=== PATIENT | male | born 1960 | race Caucasian/White ===

== ENCOUNTER 2016-02-20 16:51 | Inpatient (IN) | payer BC, OTHER ==
[2016-02-20 17:07] VITALS: BMI 28.5
[2016-02-20] MEDS ORDERED: dilTIAZem HCL 50 MG/10 ML - 10 ML VIAL IVPUSH ONE ×2 (17:37→18:53)
--- NOTE | 2016-02-20 17:37 | PDOC ---
History of Present Illness <Cyndi Moreno - Last Filed: 02/20/16 19:58> <Ashley Shaffer - Last Filed: 02/21/16 02:31> - General Chief Complaint: Irregular Heart Beat Stated Complaint: CHEST PAIN Time Seen by Provider: 02/20/16 17:37 - History of Present Illness Initial Comments: 02/20/16 17:57 The patient is a 53 year old male with a past medical hx of afib who presents to the ED complaining of chest pain and palpitations since today. The patient notes associated SOB. The patient reports his first onset of afib was June 12, 2015 and he is on Eliquis. 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 The patient states he started to feel an irregular heartbeat and came to the ED for a second opinion. The patient denies fever, chills The patient denies nausea, vomiting, diarrhea The patient denies Social:No tobacco use reported Allergies:NKDA Surgical:None reported PCP: N/A (Cyndi Moreno) Past History <Cyndi Moreno - Last Filed: 02/20/16 19:58> - Past Medical History Cardiac Disorders: Yes (afib onset may 2015) - Psycho/Social/Smoking Cessation Hx Suicidal Ideation: No Smoking History: Never smoked Hx Alcohol Use: No Drug/Substance Use Hx: No <Ashley Shaffer - Last Filed: 02/21/16 02:31> - Past Medical History Allergies/Adverse Reactions: Allergies Allergy/AdvReac Type Severity Reaction Status Date / Time No Known Allergies Allergy Verified 02/20/16 17:43 Home Medications: Ambulatory Orders Apixaban [Eliquis] 5 mg PO BID 02/20/16 Nifedipine ER [Procardia Xl -] 120 mg PO BID 02/20/16 Review of Systems - Review of Systems Able to Perform ROS?: Yes <Cyndi Moreno - Last Filed: 02/20/16 19:58> <Ashley Shaffer - Last Filed: 02/21/16 02:31> - Review of Systems Comments:: 02/20/16 17:58 CONSTITUTIONAL: Absent: fever, chills, diaphoresis, generalized weakness, malaise, loss of appetite HEENT: Absent: rhinorrhea, nasal congestion, throat pain, throat swelling, difficulty swallowing, mouth swelling, ear pain, eye pain, visual Changes CARDIOVASCULAR: +Chest pain, palpitations, irregular heart rate Absent: syncope, lightheadedness, peripheral edema RESPIRATORY: +SOB Absent: cough, dyspnea with exertion, orthopnea, wheezing, stridor, hemoptysis GASTROINTESTINAL: Absent: abdominal pain, abdominal distension, nausea, vomiting, diarrhea, constipation, melena, hematochezia GENITOURINARY: Absent: dysuria, frequency, urgency, hesitancy, hematuria, flank pain, genital pain MUSCULOSKELETAL: Absent: myalgia, arthralgia, joint swelling SKIN: Absent: rash, itching, pallor ENDOCRINE: Absent: unexplained weight gain, unexplained weight loss, heat intolerance, cold intolerance NEUROLOGIC: Absent: headache, focal weakness or paresthesias, dizziness, unsteady gait, seizure, mental status changes, bladder or bowel incontinence PSYCHIATRIC: Absent: anxiety, depression, suicidal or homicidal ideation, hallucinations. ( Cyndi Moreno) *Physical Exam <Cyndi Moreno - Last Filed: 02/20/16 19:58> <Ashley Shaffer - Last Filed: 02/21/16 02:31> - Vital Signs Last Vital Signs Temp Pulse Resp BP Pulse Ox 98.4 F 108 H 16 112/90 100 02/20/16 17:01 02/20/16 22:16 02/20/16 22:16 02/20/16 22:16 02/20/16 22:16 - Physical Exam Comments: 02/20/16 18:00 GENERAL: Well developed, well nourished. Awake and alert. No acute distress. HEENT: Normocephalic, atraumatic. PERRLA, EOMI. No conjunctival pallor. Sclera are non- icteric. Moist mucous membranes. Oropharynx is clear. NECK: Supple. Full ROM. No JVD. Carotid pulses 2+ and symmetric, without bruits. No thyromegaly. No lymphadenopathy. CARDIOVASCULAR: +Tachycardia. Regular rhythm. No murmurs, rubs, or gallops. Distal pulses are 2 + and symmetric. PULMONARY: +No rales. No evidence of respiratory distress. Lungs clear to auscultation bilaterally. No wheezing or rhonchi. ABDOMINAL: Soft. Non-tender. Non-distended. No rebound or guarding. No organomegaly. Normoactive bowel sounds. MUSCULOSKELETAL Normal range of motion at all joints. No bony deformities or tenderness. No CVA tenderness. EXTREMITIES: No cyanosis. No clubbing. No edema. No calf tenderness. SKIN: Warm and dry. Normal capillary refill. No rashes. No jaundice. NEUROLOGICAL: Alert, awake, appropriate. Cranial nerves 2-12 intact. No focal neuro deficits. No motor deficits in the in face, upper extremities and lower extremities. Normoreflexic in the upper and lower extremities. Normal speech. Gait is normal without ataxia. PSYCHIATRIC: Cooperative. Good eye contact. Appropriate mood and affect. (Cyndi Moreno) Heart Score/ECG Review <Cyndi Moreno - Last Filed: 02/20/16 19:58> <Ashley Shaffer - Last Filed: 02/21/16 02:31> - ECG Impressions Comment:: 02/20/16 18:18 EKG performed at 1723. Read and interpreted by Dr. Shaffer afib and RVR at a rate of 154 bpm. (Cyndi Moreno) ED Treatment Course - LABORATORY CBC & Chemistry Diagram: 02/20/16 17:47 02/20/16 17:47 <Cyndi Moreno - Last Filed: 02/20/16 19:58> - LABORATORY CBC & Chemistry Diagram: 02/20/16 17:47 02/20/16 17:47 <Ashley Shaffer - Last Filed: 02/21/16 02:31> - ADDITIONAL ORDERS Additional order review: Laboratory Results 02/20/16 02/20/16 02/20/16 17:47 17:47 17:47 INR Sodium 140 Potassium 4.8 Chloride 105 Carbon Dioxide 28 Anion Gap 7 L BUN 20 H Creatinine 1.4 H Creat Clearance w eGFR 52.42 Random Glucose 91 Calcium 8.7 Magnesium 2.3 Total Bilirubin 0.7 AST 18 ALT 25 Alkaline Phosphatase 107 Creatine Kinase 173 Creatine Kinase Index 1.6 CK-MB (CK-2) 2.830 CK-MB (CK-2) Rel Index Cancelled Troponin I < 0.02 B-Natriuretic Peptide 1115.36 H Total Protein 7.2 Albumin 4.0 Urine Color Yellow Urine Appearance Clear Urine pH 5.0 Ur Specific [place] 1.029 Urine Protein Negative Urine Glucose (UA) Negative Urine Ketones Negative Urine Blood Negative Urine Nitrite Negative Urine Bilirubin Negative Urine Urobilinogen Negative Ur Leukocyte Esterase Negative 02/20/16 17:47 INR 1.45 H Sodium Potassium Chloride Carbon Dioxide Anion Gap BUN Creatinine Creat Clearance w eGFR Random Glucose Calcium Magnesium Total Bilirubin AST ALT Alkaline Phosphatase Creatine Kinase Creatine Kinase Index CK-MB (CK-2) CK-MB (CK-2) Rel Index Troponin I B-Natriuretic Peptide Total Protein Albumin Urine Color Urine Appearance Urine pH Ur Specific [place] Urine Protein Urine Glucose (UA) Urine Ketones Urine Blood Urine Nitrite Urine Bilirubin Urine Urobilinogen Ur Leukocyte Esterase 02/20/16 17:47 RBC 5.67 H MCV 88.3 MCHC 31.8 L RDW 14.6 MPV 9.5 Neutrophils % 64.3 Lymphocytes % 20.3 Monocytes % 12.5 H Eosinophils % 2.0 Basophils % 0.9 - RADIOLOGY Radiology Studies Ordered: Category Date Time Status CHEST X-RAY PORTABLE* [RAD] Stat Radiology 02/20/16 17:40 Completed 02/20/16 20:00 Chest X-Ray Impression: There is apparent mild cardiomegaly allowing for magnification. Correlation with PA and lateral view of the chest with the more sensitive for further evaluation. No acute lung disease is present. Reported By: Sav Mariano MD 02/20/16 1812 (Cyndi Moreno) Radiograph Interpretation: 02/20/16 19:59 (Cyndi Moreno) - Medications Given in the ED: ED Medications Discontinued Medications Generic Name Dose Route Start Last Admin Trade Name Freq PRN Reason Stop Dose Admin Aspirin 162 mg 02/20/16 17:40 02/20/16 18:05 Asa - PO 02/20/16 17:41 162 mg ONCE ONE Administration Diltiazem HCl 10 mg 02/20/16 17:37 02/20/16 17:51 Cardizem Injection - IVPUSH 02/20/16 17:38 10 mg ONCE ONE Administration Diltiazem HCl 20 mg 02/20/16 18:53 02/20/16 18:55 Cardizem Injection - IVPUSH 02/20/16 18:54 20 mg ONCE ONE Administration Medical Decision Making <Cyndi Moreno - Last Filed: 02/20/16 19:58> <Ashley Shaffer - Last Filed: 02/21/16 02:31> - Medical Decision Making 02/20/16 18:15 Paged hospitalist at 17:45. Awaiting call back. Dr. Currie called back at 17:51. Accepted patients case. (Cyndi Moreno) *DC/Admit/Observation/Transfer <Cyndi Moreno - Last Filed: 02/20/16 19:58> - Discharge Dispostion Admit: Yes <Ashley Shaffer - Last Filed: 02/21/16 02:31> Diagnosis at time of Disposition: Rapid atrial fibrillation - Discharge Dispostion Decision to Admit order Date/Time: Decision to Admit Order Category Date Time Status Decision to Admit to Hospital Routine Phy Order 02/20/16 17:42 Ordered - Attestations Scribe Attestion: 02/20/16 17:57 Documentation prepared by Cyndi Moreno, acting as certified medical assistant for Ashley Shaffer MD/DO. (Cyndi Moreno)
[2016-02-20] MEDS ORDERED: ASPIRIN 81 MG CHEWABLE TABLETS PO ONE (17:40)
[2016-02-20] MEDS ORDERED: dilTIAZem HCL 125 MG/25 ML - 25 ML VIAL ONE (17:43)
[2016-02-20] MEDS ORDERED: ASPIRIN 81 MG CHEWABLE TABLETS ONE (18:04)
[2016-02-20 18:24] LABS: BASOPHIL 0.9 % (0-2.0); MCH 28.1 pg (25.7-33.7); MCHC 31.8 g/dl (32.0-35.9); MEAN CELL VOLUME 88.3 fl (80-96); MEAN PLT VOLUME 9.5 fl (7.5-11.1); NEUTROPHILS 64.3 % (42.8-82.8); PLATELET COUNT 201 K/MM3 (134-434); RDW 14.6 % (11.9-15.9); WHITE BLOOD COUNT 11.4 K/mm3 (4.0-10.0)
[2016-02-20 18:27] LABS: URINE APPEARANCE CLEAR; URINE BILIRUBIN NEGATIVE (NEGATIVE); URINE BLOOD NEGATIVE (NEGATIVE); URINE COLOR YELLOW; URINE GLUCOSE (UA) NEGATIVE (NEGATIVE); URINE KETONE NEGATIVE (NEGATIVE); URINE LEUK ESTERASE NEGATIVE (NEGATIVE); URINE NITRITE NEGATIVE (NEGATIVE); URINE PROTEIN NEGATIVE (NEGATIVE); URINE UROBILINOGEN NEGATIVE E.U./dl (0.2-1.0)
[2016-02-20 18:37] LABS: INR 1.45 (0.82-1.09); PROTHROMBIN TIME (PATIENT) 16.1 SEC (9.98-11.88)
[2016-02-20 18:47] LABS: ANION GAP 7 (8-16); BILIRUBIN,TOTAL 0.7 mg/dL (0.2-1.0); CALCIUM 8.7 mg/dL (8.5-10.1); CO2 28 mmol/L (21-32); CREATININE 1.4 mg/dL (0.7-1.3); GLUCOSE,RANDOM 91 mg/dL (74-106); MAGNESIUM 2.3 mg/dL (1.8-2.4); SGOT/AST 18 U/L (15-37); SGPT/ALT 25 U/L (12-78); TOT PROT 7.2 g/dl (6.4-8.2)
[2016-02-20 18:49] LABS: ALK PHOS 107 U/L (45-117); TROPONIN I < 0.02 ng/ml (0.00-0.05)
--- NOTE | 2016-02-20 18:53 | PN ---
Progress Note (short form) - Note Progress Note: 55 yo h/o PAF, stress echo showed asymmetric septal hypertrophy 20 mmHg, normal LV size and fxn with no inducible ischemia, presented to office in asymptomatic rapid afib, hemodynamically stable despite medication compliance. He is receiving Cardizem and Lopressor for rate-control, will plan for DCCV in AM if persists in rapid afib as he has been compliant with Eliquis. Plan of care d/w patient and . Please see office note for details, check TSH and echo.
[2016-02-20] MEDS ORDERED: METOPROLOL TARTRATE 25 MG TABLET (FP) ONE ×2 (18:54→22:08)
[2016-02-20] MEDS: METOPROLOL TARTRATE 25 MG TABLET (FP) PO SCH ×2 (18:56→22:16)
--- NOTE | 2016-02-20 19:19 | HP ---
<Sushant Valencia - Last Filed: 02/20/16 20:22> CHIEF COMPLAINT: AFIB PCP: Dr. Rusty Hill HISTORY OF PRESENT ILLNESS: 55 year old male, with a significant past medical history of AFIB (first diagnosed 05/2015) on eliquis, who presented with chest pain and palpitations. No surgical history. Social history positive for social ETOH use, otherwise negative. Family history significant for father having AFIB. ER course was notable for: (1) Chest Pain (2) Palpitations (3) Onset AFIB Recent Travel: No recent travel PAST MEDICAL HISTORY: AFIB (first diagnosed 05/2015) on eliquis PAST SURGICAL HISTORY: None reported Social History: Smoking: None reported Alcohol: Social use Drugs: None reported Family History: Father: AFIB Allergies No Known Allergies Allergy (Verified 02/20/16 17:43) HOME MEDICATIONS: Medication Instructions Recorded Apixaban [Eliquis] 5 mg PO BID 02/20/16 Nifedipine ER [Procardia Xl -] 120 mg PO BID 02/20/16 REVIEW OF SYSTEMS CONSTITUTIONAL: Absent: fever, chills, diaphoresis, generalized weakness, malaise, loss of appetite, weight change HEENT: Absent: rhinorrhea, nasal congestion, throat pain, throat swelling, difficulty swallowing, mouth swelling, ear pain, eye pain, visual changes CARDIOVASCULAR: Reported: Chest pain, palpitations Absent: syncope, irregular heart rate, lightheadedness, peripheral edema RESPIRATORY: Absent: cough, shortness of breath, dyspnea with exertion, orthopnea, wheezing, stridor, hemoptysis GASTROINTESTINAL: Absent: abdominal pain, abdominal distension, nausea, vomiting, diarrhea, constipation, melena, hematochezia GENITOURINARY: Absent: dysuria, frequency, urgency, hesitancy, hematuria, flank pain, genital pain MUSCULOSKELETAL: Absent: myalgia, arthralgia, joint swelling, back pain, neck pain SKIN: Absent: rash, itching, pallor HEMATOLOGIC/IMMUNOLOGIC: Absent: easy bleeding, easy bruising, lymphadenopathy, frequent infections ENDOCRINE: Absent: unexplained weight gain, unexplained weight loss, heat intolerance, cold intolerance NEUROLOGIC: Absent: headache, focal weakness or paresthesias, dizziness, unsteady gait, seizure, mental status changes, bladder or bowel incontinence PSYCHIATRIC: Absent: anxiety, depression, suicidal or homicidal ideation, hallucinations. PHYSICAL EXAMINATION Vital Signs - 24 hr 01/03/17 18:50 Pulse Rate [ 120 H Left] Respiratory 18 Rate Blood Pressure 119/63 [Arm] O2 Sat by Pulse 100 Oximetry (%) GENERAL: Awake, alert, and fully oriented, in no acute distress. HEAD: Normal with no signs of trauma. EYES: Pupils equal, round and reactive to light, extraocular movements intact, sclera anicteric, conjunctiva clear. No lid lag. EARS, NOSE, THROAT: Ears normal, nares patent, oropharynx clear without exudates. Moist mucous membranes. NECK: Normal range of motion, supple without lymphadenopathy, JVD, or masses. LUNGS: Breath sounds equal, clear to auscultation bilaterally. No wheezes, and no crackles. No accessory muscle use. HEART: +AFIB, normal S1 and S2 without murmur, rub or gallop. ABDOMEN: Soft, nontender, not distended, normoactive bowel sounds, no guarding, no rebound, no masses. No hepatomegaly or splenomegaly. MUSCULOSKELETAL: Normal range of motion at all joints. No bony deformities or tenderness. No CVA tenderness. UPPER EXTREMITIES: 2+ pulses, warm, well-perfused. No cyanosis. No clubbing. Cap refill <2 seconds. No peripheral edema. LOWER EXTREMITIES: 2+ pulses, warm, well-perfused. No calf tenderness. No peripheral edema. NEUROLOGICAL: Cranial nerves II-XII intact. Normal speech. Normal gait. PSYCHIATRIC: Cooperative. Good eye contact. Appropriate mood and affect. SKIN: Warm, dry, normal turgor, no rashes or lesions noted. Chest X-Ray Impression - No acute lung disease, mild cardiomegaly EKG Impression: AFIB with RVR, rate of 54 ASSESSMENT/PLAN: 55 year old male, px medical history of AFIB on eliquis, who present with chest pain and palpitations, found to be in AFIB in RVR, being admitted for cardioversion in the AM 1.) AFIB with RVR on eliquis - Cardioversion in the AM - NPO after midnight - Coags in the AM - Cardiology on consult - Cardizem given for rate control, continue with beta kelley 2.) DVT on prophylaxis, on eliquis Admit to [facility] Documentation prepared by Sushant Valencia, acting as center medical director for Lizet Rm D.O. <Lizet Rm - Last Filed: 02/25/16 19:02> Visit type - Emergency Visit Emergency Visit: Yes ED Registration Date: 02/20/16 Care time: The patient presented to the Emergency Department on the above date and was hospitalized for further evaluation of their emergent condition. - New Patient This patient is new to me today: Yes Date on this admission: 02/25/16 - Critical Care Critical Care patient: No
[2016-02-20] MEDS: APIXABAN 5 MG TABLET PO SCH (22:35)
[2016-02-21 06:21] LABS: MCH 28.7 pg (25.7-33.7); MCHC 32.1 g/dl (32.0-35.9); MEAN CELL VOLUME 89.6 fl (80-96); MEAN PLT VOLUME 9.2 fl (7.5-11.1); PLATELET COUNT 202 K/MM3 (134-434); RDW 14.4 % (11.9-15.9); WHITE BLOOD COUNT 10.4 K/mm3 (4.0-10.0)
[2016-02-21 06:33] LABS: INR 1.53 (0.82-1.09)
[2016-02-21 06:35] LABS: ACTIVATED PTT 41.9 SECONDS (26.9-34.4)
[2016-02-21 07:10] LABS: CALCIUM 8.9 mg/dL (8.5-10.1); CREATININE 1.3 mg/dL (0.7-1.3); MAGNESIUM 2.4 mg/dL (1.8-2.4)
--- NOTE | 2016-02-21 09:51 | PN ---
Progress Note, Physician History of Present Illness: Remains in asymptomatic rapid atrial fibrillation. - Current Medication List Current Medications: Active Medications Apixaban (Eliquis -) 5 mg PO BID [facility] Last Admin: 02/20/16 22:35 Dose: 5 mg Metoprolol Tartrate (Lopressor -) 25 mg PO BID [facility] Last Admin: 02/20/16 22:16 Dose: 25 mg - Objective Vital Signs: Vital Signs Temperature 98.4 F 02/20/16 17:01 Pulse Rate 109 H 02/21/16 03:47 Respiratory Rate 16 02/21/16 03:47 Blood Pressure 112/89 02/21/16 03:47 O2 Sat by Pulse Oximetry (%) 98 02/21/16 03:47 Constitutional: Yes: No Distress, Calm Neck: Yes: Supple Cardiovascular: Yes: Tachycardia, Pulse Irregular Respiratory: Yes: Regular, CTA Bilaterally Gastrointestinal: Yes: Normal Bowel Sounds, Soft Edema: No Labs: CBC, BMP 02/21/16 06:04 02/21/16 06:04 INR, PTT INR 1.53 (0.82-1.09) H 02/21/16 06:04 - ....Imaging EKG: Report Reviewed (Tele: Rapid afib) Problem List - Problems (1) Rapid atrial fibrillation Code(s): I48.91 - UNSPECIFIED ATRIAL FIBRILLATION Assessment/Plan A: 1. Rapid atrial fibrillation (asymptomatic) P:1. Ruled out for [place], check TSH 2. Echo to assess LV and valve fxn 3. Increase Lopressor 50 bid, continue Eliquis 5 bid, will consider DCCV if rate -control remains suboptimal.
[2016-02-21] MEDS ORDERED: METOPROLOL TARTRATE 50 MG TABLET (FP) PO SCH (10:00)
[2016-02-21] MEDS ORDERED: METOPROLOL TARTRATE 25 MG TABLET (FP) ONE (10:42)
[2016-02-21] MEDS: APIXABAN 5 MG TABLET PO SCH ×2 (10:47→21:04)
[2016-02-21 11:14] LABS: THYROID STIMULATING HORMONE 1.15 uIU/ml (0.358-3.74)
--- NOTE | 2016-02-21 13:08 | PN ---
Progress Note, Physician - Current Medication List Current Medications: Active Medications Apixaban (Eliquis -) 5 mg PO BID [facility] Last Admin: 02/21/16 10:47 Dose: 5 mg - Objective Vital Signs: Vital Signs Temperature 97.6 F 02/21/16 12:29 Pulse Rate 114 H 02/21/16 12:29 Respiratory Rate 18 02/21/16 12:29 Blood Pressure 117/89 02/21/16 12:29 O2 Sat by Pulse Oximetry (%) 95 02/21/16 12:29 Constitutional: Yes: Well Nourished, No Distress, Calm Eyes: Yes: WNL, Conjunctiva Clear HENT: Yes: WNL, Atraumatic, Normocephalic Neck: Yes: WNL, Supple, Trachea Midline Cardiovascular: Yes: Tachycardia. No: Regular Rate and Rhythm Respiratory: Yes: WNL, Regular, CTA Bilaterally Gastrointestinal: Yes: WNL, Normal Bowel Sounds Musculoskeletal: Yes: WNL Extremities: Yes: WNL Edema: No Integumentary: Yes: WNL Neurological: Yes: WNL, Alert, Oriented ...Motor Strength: WNL Psychiatric: Yes: WNL Labs: CBC, BMP 02/21/16 06:04 02/21/16 06:04 INR, PTT INR 1.53 (0.82-1.09) H 02/21/16 06:04 Impression/Plan Impression/Plan: 55 year old man admitted for afib with RVR -started on metoprolol 50 BID -HR still above 120 -increase to 75 BID -discussed case with Cardio attending and if HR remains difficult to control will go for cardioversion -follow up echo Visit type - Emergency Visit Emergency Visit: Yes ED Registration Date: 02/20/16 Care time: The patient presented to the Emergency Department on the above date and was hospitalized for further evaluation of their emergent condition. - New Patient This patient is new to me today: Yes Date on this admission: 02/21/16 - Critical Care Critical Care patient: No
[2016-02-21] MEDS ORDERED: METOPROLOL TARTRATE 25 MG TABLET (FP) PO STA (13:14)
[2016-02-21] MEDS: METOPROLOL TARTRATE 50 MG TABLET (FP) PO SCH (21:04)
[2016-02-22 07:34] LABS: CALCIUM 8.3 mg/dL (8.5-10.1); CREATININE 1.3 mg/dL (0.7-1.3); MAGNESIUM 2.2 mg/dL (1.8-2.4); PHOSPHOROUS 3.4 mg/dL (2.5-4.9)
[2016-02-22 07:35] LABS: BASOPHIL 0.5 % (0-2.0); EOSINOPHIL 2.2 % (0-4.5); MCH 29.4 pg (25.7-33.7); MCHC 32.7 g/dl (32.0-35.9); MEAN CELL VOLUME 89.8 fl (80-96); MEAN PLT VOLUME 9.7 fl (7.5-11.1); NEUTROPHILS 65.3 % (42.8-82.8); PLATELET COUNT 177 K/MM3 (134-434); RDW 14.7 % (11.9-15.9); WHITE BLOOD COUNT 9.7 K/mm3 (4.0-10.0)
--- NOTE | 2016-02-22 08:28 | PN ---
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 no complaints , no over night events asymptomatic non sustained 140's back in the 120's will consider RYAN to cardiovert. OBJECTIVE: Vital Signs Period Temp Pulse Resp BP Sys/Cervantes Pulse Ox Last 24 Hr 97.3 F-98.8 F 62-129 18-20 95-126/36-97 95-99 GENERAL: The patient is awake, alert, and fully oriented, in no acute distress. HEAD: Normal with no signs of trauma. EYES: PERRL, extraocular movements intact, sclera anicteric, conjunctiva clear. No ptosis. ENT: Ears normal, nares patent, oropharynx clear without exudates, moist mucous membranes. NECK: Trachea midline, full range of motion, supple. LUNGS: Breath sounds equal, clear to auscultation bilaterally, no wheezes, no crackles, no accessory muscle use. HEART: Regular rate and rhythm, S1, S2 without murmur, rub or gallop. ABDOMEN: Soft, nontender, nondistended, normoactive bowel sounds, no guarding, no rebound, no hepatosplenomegaly, no masses. EXTREMITIES: 2+ pulses, warm, well-perfused, no edema. NEUROLOGICAL: Cranial nerves II through XII grossly intact. Normal speech, gait not observed. PSYCH: Normal mood, normal affect. SKIN: Warm, dry, normal turgor, no rashes or lesions noted Laboratory Results - last 24 hr 02/21/16 02/21/16 02/22/16 06:04 06:04 06:00 WBC 9.7 RBC 5.66 H Hgb 16.6 Hct 50.8 H MCV 89.8 MCHC 32.7 RDW 14.7 Plt Count 177 MPV 9.7 Neutrophils % 65.3 Lymphocytes % 21.4 Monocytes % 10.6 H Eosinophils % 2.2 Basophils % 0.5 Sodium Potassium Chloride Carbon Dioxide Anion Gap BUN Creatinine Random Glucose Calcium Phosphorus Magnesium TSH 1.15 Cancelled 02/22/16 06:00 WBC RBC Hgb Hct MCV MCHC RDW Plt Count MPV Neutrophils % Lymphocytes % Monocytes % Eosinophils % Basophils % Sodium 140 Potassium 4.7 Chloride 105 Carbon Dioxide 27 Anion Gap 8 BUN 19 H Creatinine 1.3 Random Glucose 93 Calcium 8.3 L Phosphorus 3.4 Magnesium 2.2 TSH Active Medications Generic Name Dose Route Start Last Admin Trade Name Freq PRN Reason Stop Dose Admin Apixaban 5 mg 02/20/16 22:00 02/21/16 21:04 Eliquis - PO 5 mg BID [facility] Administration Metoprolol Tartrate 75 mg 02/21/16 22:00 02/21/16 21:04 Lopressor - PO 75 mg BID [facility] Administration RYAN/CARDIOVERSION Preliminary result as follows 1. Mild to moderately decreased LV systolic function 2. Moderate MR 3. Mild to moderate TR 4. Mild AR 5. No evidence of mass or thrombus in LA appendage 6. No evidence of intracardiac shunt via color Doppler or agitated saline injection 7. No evidence of atherosclerotic plaque in thoracic aorta or aortic arch 8. No pericardial effusion ASSESSMENT/PLAN: 55 year old male, px medical history of AFIB on eliquis, who present with chest pain and palpitations, found to be in asymptomatic AFIB in RVR , being admitted for cardioversion. 1.) AFIB with RVR on eliquis:-HR was not controlled medically s/p D/C cardioversion, currently NS rhythm -metoprol changed to succinate 50 BID -started on amiodarone -started on valsartan - Cardiology input apreciated - Cardizem given for rate control, continue with beta kelley -will continue A/C -Change Toprol XL 50 bid, start Diovan 80 qd and amio 200 bid, with up titration as tolerated, -Plan for RYAN-guided DCCV as rate-control remains suboptimal. 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 - New Patient This patient is new to me today: Yes Date on this admission: 02/20/16 - Critical Care Critical Care patient: No
[2016-02-22] MEDS: METOPROLOL TARTRATE 50 MG TABLET (FP) PO SCH (10:00)
--- NOTE | 2016-02-22 10:06 | PN ---
Progress Note, Physician History of Present Illness: Mild dyspnea with exertion, remains in rapid atrial fibrillation. - Current Medication List Current Medications: Active Medications Apixaban (Eliquis -) 5 mg PO BID [facility] Last Admin: 02/21/16 21:04 Dose: 5 mg Metoprolol Tartrate (Lopressor -) 75 mg PO BID [facility] Last Admin: 02/21/16 21:04 Dose: 75 mg - Objective Vital Signs: Vital Signs Temperature 97.4 F L 02/22/16 06:00 Pulse Rate 120 H 02/22/16 06:10 Respiratory Rate 20 02/22/16 06:10 Blood Pressure 117/77 02/22/16 06:10 O2 Sat by Pulse Oximetry (%) 98 02/21/16 21:00 Constitutional: Yes: No Distress, Calm Neck: Yes: Supple Cardiovascular: Yes: Tachycardia, Pulse Irregular Respiratory: Yes: Regular, CTA Bilaterally Gastrointestinal: Yes: Normal Bowel Sounds, Soft Edema: No Labs: CBC, BMP 02/22/16 06:00 02/22/16 06:00 INR, PTT INR 1.53 (0.82-1.09) H 02/21/16 06:04 Problem List - Problems (1) Rapid atrial fibrillation Code(s): I48.91 - UNSPECIFIED ATRIAL FIBRILLATION (2) Tachycardia induced cardiomyopathy Code(s): R00.0 - TACHYCARDIA, UNSPECIFIED I43 - CARDIOMYOPATHY IN DISEASES CLASSIFIED ELSEWHERE (3) Systolic dysfunction, left ventricle Code(s): I51.9 - HEART DISEASE, UNSPECIFIED Assessment/Plan Echo: Normal LV size with mod-severely decreased LV fxn, mod decreased RV fxn, severe NATHAN, mod-severe MR, TR A: 1. Rapid atrial fibrillation (asymptomatic) 2. LV systolic dysfunction with MR, TR, suspect tachycardia-mediated etiology P:1. Ruled out for [place] 2. Change Toprol XL 50 bid, start Diovan 80 qd and amio 200 bid, with uptitration as tolerated, continue Eliquis 5 bid. Plan for RYAN-guided DCCV as rate-control remains suboptimal. 3. Reassess LV fxn in future once rate/rhythm control established
[2016-02-22] MEDS ORDERED: LIDOCAINE HCL/PF 1% SDV 5ML VIAL ONE (10:59)
[2016-02-22] MEDS ORDERED: PROPOFOL 20 ML ONE ×2 (10:59)
[2016-02-22] MEDS ORDERED: AMIODARONE HCL 150 MG/3 ML VIAL IVPB ONE (12:20)
[2016-02-22] MEDS ORDERED: AMIODARONE HCL 200 MG TABLET (FP) PO SCH (12:30)
[2016-02-22] MEDS: VALSARTAN 80 MG TABLET (UD) PO SCH (14:38)
[2016-02-22] MEDS: APIXABAN 5 MG TABLET PO SCH ×2 (14:38→22:08)
[2016-02-22] MEDS: METOPROLOL SUCCINATE 50 MG TAB.SR.24H (FP) PO SCH ×2 (14:38→22:08)
--- NOTE | 2016-02-22 15:15 | EKG ---
Test Reason : Blood Pressure : / mmHG Vent. Rate : 154 BPM Atrial Rate : 288 BPM P-R Int : 000 ms QRS Dur : 092 ms QT Int : 298 ms P-R-T Axes : 000 072 016 degrees QTc Int : 477 ms ATRIAL FIBRILLATION WITH RAPID VENTRICULAR RESPONSE INCOMPLETE RIGHT BUNDLE BRANCH BLOCK NONSPECIFIC ST ABNORMALITY , PROBABLY DIGITALIS EFFECT ABNORMAL ECG NO PREVIOUS ECGS AVAILABLE Confirmed by JUHI ALBERT MD ([id number]) on 02/22/2016 3:15:20 PM Referred By: Confirmed By:JUHI ALBERT MD
--- NOTE | 2016-02-22 16:37 | EKG ---
Test Reason : Blood Pressure : / mmHG Vent. Rate : 058 BPM Atrial Rate : 058 BPM P-R Int : 162 ms QRS Dur : 094 ms QT Int : 440 ms P-R-T Axes : 065 062 051 degrees QTc Int : 431 ms SINUS BRADYCARDIA POSSIBLE LEFT ATRIAL ENLARGEMENT BORDERLINE ECG WHEN COMPARED WITH ECG OF 20-FEB-2016 17:23, SINUS RHYTHM HAS REPLACED ATRIAL FIBRILLATION VENT. RATE HAS DECREASED BY 96 BPM Confirmed by JUHI ALBERT MD ([id number]) on 02/22/2016 4:37:10 PM Referred By: MAURI MARTELL DR Confirmed By:JUHI ALBERT MD
--- NOTE | 2016-02-22 21:08 | PN ---
Progress Note (short form) - Note Progress Note: RYAN/CARDIOVERSION Risks including, but not limited to esophageal injury discussed Preliminary result as follows 1. Mild to moderately decreased LV systolic function 2. Moderate MR 3. Mild to moderate TR 4. Mild AR 5. No evidence of mass or thrombus in LA appendage 6. No evidence of intracardiac shunt via color Doppler or agitated saline injection 7. No evidence of atherosclerotic plaque in thoracic aorta or aortic arch 8. No pericardial effusion Official result to follow Successful synchronized cardioversion to sinus after 3rd try at 200J. Patient was given IV Amiodarone 150 mg bolus and started on Amiodarone 200 mg PO once a day. Check 12 lead ECG. Continue remainder of medications Further plans are to follow Get Patel MD
[2016-02-22] MEDS: AMIODARONE HCL 200 MG TABLET (FP) PO SCH (22:08)
[2016-02-23] MEDS ORDERED: dilTIAZem HCL 30 MG TABLET (FP) PO ONE (06:02)
[2016-02-23] MEDS ORDERED: METOPROLOL TARTRATE 25 MG TABLET (FP) PO ONE (06:23)
[2016-02-23] MEDS ORDERED: METOPROLOL TARTRATE 50 MG TABLET (FP) ONE (06:28)
--- NOTE | 2016-02-23 06:29 | HOSP ---
Subjective - Review of Symptoms Events since last encounter: patients heart rate on telemetry elevated to 120's systolic Subjective: patient is s/p cardioversion yesterday from rapid a fib to regular sinus rythm. Now patient rate 120's. He is asymptomatic. Denies chest pain, palpitations, sob , diaphoresis. EKG obtained shows atrial flutter, some st depressions in inferior leads without st elevation in R sided leads. Pulmonary: No: Dyspnea, Cough, Pleuritic Chest Pain Cardiovascular: Yes: Paroxysmal Noc. Dyspnea. No: Chest Pain, Palpitations Gastrointestinal: No: Nausea Physical Examination Vital Signs: Vital Signs Temperature 97.4 F L 02/23/16 02:00 Pulse Rate 71 02/23/16 02:00 Respiratory Rate 20 02/23/16 02:00 Blood Pressure 101/58 02/23/16 02:00 O2 Sat by Pulse Oximetry (%) 98 02/22/16 22:00 Constitutional: Yes: No Distress, Calm Eyes: Yes: Conjunctiva Clear Neck: Yes: Supple Cardiovascular: Yes: Tachycardia (regular rythm), S1, S2 Respiratory: Yes: CTA Bilaterally Gastrointestinal: Yes: Normal Bowel Sounds Labs: CBC, BMP 02/22/16 06:00 02/22/16 06:00 Hospitalist Encounter Assessment: a fib s/p cardioversion to regular sinus now in a flutter with inferior lead st depressions -already on Toprol XL -lopressor 25 now -st depressions likely due to recent cardioversion -check cbc, bmp, mag, phos, trop -cardiology contacted Visit type - Emergency Visit Emergency Visit: No - New Patient This patient is new to me today: Yes Date on this admission: 02/23/16 - Critical Care Critical Care patient: No
[2016-02-23 06:57] LABS: MCH 29.3 pg (25.7-33.7); MEAN CELL VOLUME 88.8 fl (80-96); MEAN PLT VOLUME 9.7 fl (7.5-11.1); PLATELET COUNT 177 K/MM3 (134-434); RDW 14.5 % (11.9-15.9); WHITE BLOOD COUNT 9.9 K/mm3 (4.0-10.0)
[2016-02-23 07:51] LABS: CALCIUM 8.5 mg/dL (8.5-10.1); CREATININE 1.4 mg/dL (0.7-1.3); MAGNESIUM 2.3 mg/dL (1.8-2.4); PHOSPHOROUS 3.7 mg/dL (2.5-4.9)
[2016-02-23 07:53] LABS: TROPONIN I 0.04 ng/ml (0.00-0.05)
--- NOTE | 2016-02-23 07:57 | PN ---
Progress Note, Physician Chief Complaint: Events noted Currently in atrial flutter with variable ventricular response. Reverted back this am History of Present Illness: Patient was seen and examined. Awake and alert. Chart was reviewed Denies chest pain or shortness breath Notified to patient regarding atrial flutter - Current Medication List Current Medications: Active Medications Amiodarone HCl (Cordarone -) 200 mg PO BID [facility] Last Admin: 02/22/16 22:08 Dose: 200 mg Apixaban (Eliquis -) 5 mg PO BID [facility] Last Admin: 02/22/16 22:08 Dose: 5 mg Metoprolol Succinate (Toprol Xl -) 50 mg PO BID [facility] Last Admin: 02/22/16 22:08 Dose: 50 mg Valsartan (Diovan -) 80 mg PO DAILY [facility] Last Admin: 02/22/16 14:38 Dose: 80 mg - Objective Vital Signs: Vital Signs Temperature 97.5 F L 02/23/16 06:00 Pulse Rate 122 H 02/23/16 06:00 Respiratory Rate 20 02/23/16 06:00 Blood Pressure 132/93 02/23/16 06:00 O2 Sat by Pulse Oximetry (%) 98 02/22/16 22:00 Neck: Yes: Supple Cardiovascular: Yes: Tachycardia, Pulse Irregular, Murmur (Soft SM), S1, S2 Respiratory: Yes: CTA Bilaterally Gastrointestinal: Yes: Normal Bowel Sounds, Soft. No: Tenderness Edema: No Additional Findings/Remarks: - Review of Systems Constitutional: denies: Chills, Fever Cardiovascular: denies: Chest Pain, Palpitations, Shortness of Breath Respiratory: denies: SOB. denies: Cough, Hemoptysis, Orthopnea, PND Gastrointestinal: denies: Abdominal Pain, Constipation, Diarrhea, Melena, Nausea , Rectal Bleeding, Vomiting Genitourinary: denies: Dysuria Musculoskeletal: denies: Joint Pain Neurological: denies: Dizziness, Headache, Seizure, Syncope Labs: CBC, BMP 02/23/16 05:55 INR, PTT INR 1.53 (0.82-1.09) H 02/21/16 06:04 Problem List - Problems (1) Rapid atrial fibrillation Code(s): I48.91 - UNSPECIFIED ATRIAL FIBRILLATION (2) Systolic dysfunction, left ventricle Code(s): I51.9 - HEART DISEASE, UNSPECIFIED (3) Tachycardia induced cardiomyopathy Code(s): R00.0 - TACHYCARDIA, UNSPECIFIED I43 - CARDIOMYOPATHY IN DISEASES CLASSIFIED ELSEWHERE (4) Atrial flutter with rapid ventricular response Code(s): I48.92 - UNSPECIFIED ATRIAL FLUTTER Assessment/Plan 1. Recurrence of atrial arrhythmia - now in atrial flutter 2. LV systolic dysfunction with MR and TR PLAN: 1. Despite synchronized cardioversion yesterday to sinus rhythm, recurrence now to atrial flutter is seen. Recommend further rate control with increase in Toprol XL. Continue Diovan as tolerated. Continue Amiodarone 200 mg BID. 2. Patient will need repeat synchronized cardioversion on Amiodarone. Other option is EP/RFA 3. Continue monitor on telemetry Further plans are to follow Get Patel MD
[2016-02-23] MEDS ORDERED: DIGOXIN 0.5 MG/2 ML AMPUL IVPUSH ONE (08:30)
[2016-02-23] MEDS: METOPROLOL SUCCINATE 100 MG TAB.SR.24H (FP) PO SCH ×2 (09:13→22:17)
[2016-02-23] MEDS: VALSARTAN 80 MG TABLET (UD) PO SCH (09:13)
[2016-02-23] MEDS: APIXABAN 5 MG TABLET PO SCH ×2 (09:13→22:18)
[2016-02-23] MEDS: AMIODARONE HCL 200 MG TABLET (FP) PO SCH ×2 (09:13→22:18)
[2016-02-23] MEDS ORDERED: AMIODARONE HCL 200 MG TABLET (FP) PO ONE (12:00)
--- NOTE | 2016-02-23 13:52 | PN ---
Teaching Attending Note Name of Resident: Roxanne Martinez ATTENDING PHYSICIAN STATEMENT I saw and evaluated the patient. I reviewed the resident's note and discussed the case with the resident. I agree with the resident's findings and plan as documented. SUBJECTIVE: seen and evaluated at the bedside OBJECTIVE: resting comfortably, in good spirits; irregular rhythm ASSESSMENT AND PLAN: 55 year old man admitted for afib with RVR 55 year old man admitted for afib with RVR -s/p D/C cardioversion as HR was not controlled medically -echo shows poor EF likely from tachycardia induced cardiomyopathy -started on amiodarone -was in normal sinus rhythm after procedure but again went into afib with RVR early this morning -metoprolol succinate increased to 100 BID -follow up with cardio attending for repeat cardioversion or transfer for ablation -cont on valsartan -cont elquis -will need repeat echo in 3-4 months to asses if EF has improved with medical management -will have holter monitor as an outpatient at a later date to asses if pt is sustained in NSR at which point amiodarone will be tapered off to avoid pulm fibrosis with shelter use
[2016-02-23] MEDS ORDERED: AMIODARONE HCL 150 MG/3 ML VIAL IVPB ONE (19:15)
[2016-02-23] MEDS ORDERED: dilTIAZem HCL 50 MG/10 ML - 10 ML VIAL IVPUSH ONE (19:15)
[2016-02-23] MEDS ORDERED: DILTIAZEM INJECTION 125 MG in DEXTROSE 5%-WATER - 100 ML IVPB SCH (19:30)
--- NOTE | 2016-02-23 20:38 | CONSULT ---
Consult Consult Specialty:: Pulm/CCM Reason for Consultation:: afib w/ RVR - History of Present Illness Chief Complaint: palpitations History of Present Illness: This is a 55 yo man PMH: PAF (onset 05/2015) on AC (eloquest) who presented to the ED with chest pain and palpitations. He was found to be in afib w/ RVR (hr 150s). Placed on lopressor and ultimately amiodarone for rate control. ECHO done: EF 24%. DCCV x2 with recurrent afib w/ RVR. He is being transferred to ICU for cardizem drip for rate control and possible additional DCCV. - History Source History Provided By: Patient, Medical Record - Past Medical History Cardio/Vascular: Yes: AFIB - Alcohol/Substance Use Hx Alcohol Use: No - Smoking History Smoking history: Never smoked Home Medications - Allergies Allergies/Adverse Reactions: Allergies Allergy/AdvReac Type Severity Reaction Status Date / Time No Known Allergies Allergy Verified 02/20/16 17:43 - Home Medications Home Medications: Ambulatory Orders Apixaban [Eliquis] 5 mg PO BID 02/20/16 Nifedipine ER [Procardia Xl -] 120 mg PO BID 02/20/16 Review of Systems - Review of Systems Cardiovascular: reports: Palpitations Physical Exam Vital Signs: Vital Signs Temperature 97.5 F L 02/23/16 17:10 Pulse Rate 94 H 02/23/16 20:34 Respiratory Rate 18 02/23/16 17:40 Blood Pressure 107/95 02/23/16 20:34 O2 Sat by Pulse Oximetry (%) 98 02/23/16 17:40 Current Medications Amiodarone HCl (Cordarone -) 200 mg PO BID [facility] Last Admin: 02/23/16 09:13 Dose: 200 mg Apixaban (Eliquis -) 5 mg PO BID [facility] Last Admin: 02/23/16 09:13 Dose: 5 mg Diltiazem HCl 125 mg/ Dextrose 125 mls @ 5 mls/hr IVPB TITR JOSEPH; 5 MG/HR PRN Reason: Protocol Last Admin: 02/23/16 20:34 Dose: 5 mls/hr Metoprolol Succinate (Toprol Xl -) 100 mg PO BID [facility] Last Admin: 02/23/16 09:13 Dose: 100 mg Valsartan (Diovan -) 80 mg PO DAILY [facility] Last Admin: 02/23/16 09:13 Dose: 80 mg Constitutional: Yes: Well Nourished, No Distress, Calm Eyes: Yes: EOM Intact Cardiovascular: Yes: Tachycardia, Pulse Irregular, S1, S2 Respiratory: Yes: CTA Bilaterally Gastrointestinal: Yes: Soft Extremities: Yes: WNL Neurological: Yes: WNL, Alert, Oriented Labs: CBC, BMP 02/23/16 05:55 02/23/16 05:55 Imaging - Results Chest X-ray: Report Reviewed, Image Reviewed EKG: Report Reviewed, Image Reviewed Problem List - Problems (1) Atrial flutter with rapid ventricular response Code(s): I48.92 - UNSPECIFIED ATRIAL FLUTTER (2) Systolic dysfunction, left ventricle Code(s): I51.9 - HEART DISEASE, UNSPECIFIED Assessment/Plan A/P: 55 yo man with diastolic heart failure, stable PAF on anticoagulation s/p DCCV x2 w/ recurrent afib w/ RVR -Cardiology following -tele monitor -cont amiodarone and lopressor -cont statin -cardizem drip per cardiology for goal HR <100 -cont anticoagulation -DCCV vs ablation per cardiology Boerem ACNP Pulm/CCM CT: 35m
--- NOTE | 2016-02-23 20:40 | PN ---
Physical Exam: SUBJECTIVE: Patient seen and examined at bed side on 4th floor this AM. . patient sitting comfortably. asymptomatic fib with hr 120's on tele. patient denied any cp, n/v/d OBJECTIVE: Vital Signs Period Temp Pulse Resp BP Sys/Cervantes Pulse Ox Last 24 Hr 97.2 F-98.4 F 55-128 18-20 101-132/58-94 98-98 GENERAL: The patient is awake, alert, and fully oriented, in no acute distress. HEAD: Normal with no signs of trauma. EYES: PERRL, extraocular movements intact, sclera anicteric, conjunctiva clear. No ptosis. ENT: Ears normal, nares patent, oropharynx clear without exudates, moist mucous membranes. NECK: Trachea midline, full range of motion, supple. LUNGS: Breath sounds equal, clear to auscultation bilaterally, no wheezes, no crackles, no accessory muscle use. HEART: tachy irregular irregular S1, S2 without murmur, rub or gallop. ABDOMEN: Soft, nontender, nondistended, normoactive bowel sounds, no guarding, no rebound, no hepatosplenomegaly, no masses. EXTREMITIES: 2+ pulses, warm, well-perfused, no edema. NEUROLOGICAL: Cranial nerves II through XII grossly intact. Normal speech, gait not observed. PSYCH: Normal mood, normal affect. SKIN: Warm, dry, normal turgor, no rashes or lesions noted Laboratory Results - last 24 hr 02/23/16 02/23/16 05:55 05:55 WBC 9.9 RBC 5.57 Hgb 16.3 Hct 49.5 H MCV 88.8 MCHC 33.0 RDW 14.5 Plt Count 177 MPV 9.7 Sodium 140 Potassium 4.3 Chloride 106 Carbon Dioxide 28 Anion Gap 6 L BUN 21 H Creatinine 1.4 H Random Glucose 90 Calcium 8.5 Phosphorus 3.7 Magnesium 2.3 Troponin I 0.04 D Active Medications Generic Name Dose Route Start Last Admin Trade Name Freq PRN Reason Stop Dose Admin Amiodarone HCl 200 mg 02/22/16 22:00 02/23/16 09:13 Cordarone - PO 200 mg BID JOSEPH Administration Apixaban 5 mg 02/20/16 22:00 02/23/16 09:13 Eliquis - PO 5 mg BID JOSEPH Administration Diltiazem HCl 125 mg/ Dextrose 125 mls @ 5 mls/hr 02/23/16 19:30 IVPB TITR JOSEPH Protocol 5 MG/HR Metoprolol Succinate 100 mg 02/23/16 08:04 02/23/16 09:13 Toprol Xl - PO 100 mg BID JOSEPH Administration Valsartan 80 mg 02/22/16 10:45 02/23/16 09:13 Diovan - PO 80 mg DAILY JOSEPH Administration ASSESSMENT/PLAN: 55 year old male, px medical history of AFIB on eliquis, who present with chest pain and palpitations, found to be in asymptomatic AFIB in RVR , being admitted for cardioversion. 1.) AFIB with RVR on eliquis:-HR was not controlled medically s/p D/C cardioversion, currently atrial arrhythmia - now in Afib with RVR -metoprol changed to succinate 50 BID -started on amiodarone -started on valsartan -Cardiology input apreciated -Cardizem given for rate control, continue with beta kelley -will continue A/C -Change Toprol XL 50 bid, start Diovan 80 qd and amio 200 bid, with up titration as tolerated, -Plan for RYAN-guided DCCV as rate-control remains suboptimal. 2) LV systolic dysfunction with MR, TR, suspect tachycardia-mediated etiology-( echo shows poor EF likely from tachycardia induced cardiomyopathy) -Reassess LV fxn in future once rate/rhythm control established -will need repeat echo in 3-4 months to asses if EF has improved with medical management increase in Toprol XL. Continue Diovan as tolerated. Continue Amiodarone 200 mg BID. will to consider to repeat synchronized cardioversion on Amiodarone. monitor on telemetry 3)IA ruled out 4.) DVT on prophylaxis, on eliquis Admit to [facility] oral hydrate replete electrolytes as needed regular diet Visit type - Emergency Visit Emergency Visit: Yes ED Registration Date: 02/20/16 Care time: The patient presented to the Emergency Department on the above date and was hospitalized for further evaluation of their emergent condition. - New Patient This patient is new to me today: No - Critical Care Critical Care patient: No
[2016-02-24] MEDS ORDERED: dilTIAZem HCL 125 MG/25 ML - 5 ML VIAL ONE (06:24)
--- NOTE | 2016-02-24 06:54 | PN ---
Progress Note (short form) - Note Progress Note: Chief Complaint: Events noted, notes reviewed, recurrent atrial flutter/ fibrillation post repeat cardioversion (2 unsuccessful sessions, multiple attempts ), complaining of palpitations, denies any chest pain or dyspnea History of Present Illness: Seen and examined in the ICU. Events noted, notes reviewed, recurrent atrial flutter/fibrillation post repeat cardioversion (2 unsuccessful sessions, multiple attempts ), complaining of palpitations, denies any chest pain or dyspnea Was transferred to ICU for purpose of IV Cardizem therapy initiation Echocardiography revealed severe LV systolic dysfunction, bi-atrial dilatation, moderate to severe MR and TR with no evidence of pulmonary HTN Doubt if repeat cardioversion would be successful given above clinical presentation and significant bi-atrial dilatation, would recommend optimization of medical therapy and consideration for AF/A-flutter RFA which can be done as outpatient - Current Medication List Current Medications Amiodarone HCl (Cordarone -) 200 mg PO BID [facility] Last Admin: 02/23/16 22:18 Dose: 200 mg Apixaban (Eliquis -) 5 mg PO BID [facility] Last Admin: 02/23/16 22:18 Dose: 5 mg Diltiazem HCl 125 mg/ Dextrose 125 mls @ 5 mls/hr IVPB TITR JOSEPH; 5 MG/HR PRN Reason: Protocol Last Admin: 02/23/16 20:34 Dose: 5 mls/hr Metoprolol Succinate (Toprol Xl -) 100 mg PO BID [facility] Last Admin: 02/23/16 22:17 Dose: 100 mg Valsartan (Diovan -) 80 mg PO DAILY [facility] Last Admin: 02/23/16 09:13 Dose: 80 mg - Review of Systems Constitutional: denies: Chills, Fever Cardiovascular: As noted above Respiratory: denies: Cough or Sputum Production Gastrointestinal: denies: Nausea, Vomiting, Diarrhea, Constipation or Abdominal Pain Genitourinary: denies: Dysuria Musculoskeletal: denies: Joint Pain Neurological: denies: Dizziness or Headache - Objective Vital Signs: Last Vital Signs Temp Pulse Resp BP Pulse Ox 98.7 F 105 H 16 128/105 98 02/24/16 06:00 02/24/16 06:00 02/24/16 06:00 02/24/16 06:00 02/23/16 21:00 Neck: Supple Negative JVD No Bruit Cardiovascular: S1 S2 Irregularly Irregular grade 1/6 Systolic Murmur Respiratory: Clear to A&P Bilaterally Gastrointestinal: Soft Benign Normal Bowel Sounds Ext: No Edema Labs: Troponin, BNP 02/23/16 05:55 Troponin I 0.04 D CBC, BMP 02/23/16 05:55 02/23/16 05:55 Hepatic Panel Total Bilirubin 0.7 mg/dL (0.2-1.0) 02/20/16 17:47 AST 18 U/L (15-37) 02/20/16 17:47 ALT 25 U/L (12-78) 02/20/16 17:47 Alkaline Phosphatase 107 U/L (45-117) 02/20/16 17:47 Albumin 4.0 g/dl (3.4-5.0) 02/20/16 17:47 INR, PTT INR 1.53 (0.82-1.09) H 02/21/16 06:04 - Problems (1) Rapid atrial fibrillation Code(s): I48.91 - UNSPECIFIED ATRIAL FIBRILLATION (2) Systolic dysfunction, left ventricle Code(s): I51.9 - HEART DISEASE, UNSPECIFIED (3) Tachycardia induced cardiomyopathy Code(s): R00.0 - TACHYCARDIA, UNSPECIFIED I43 - CARDIOMYOPATHY IN DISEASES CLASSIFIED ELSEWHERE (4) Atrial flutter with rapid ventricular response Code(s): I48.92 - UNSPECIFIED ATRIAL FLUTTER Assessment/Plan ASSESSMENT: 1. Paroxysmal atrial fibrillation/paroxysmal atrial flutter post failed cardioversion (2 unsuccessful sessions, multiple attempts) [id number] score 1 on NAOC's 2. Systolic LV dysfunction related to cardiomyopathy unclear ischemic vs. idiopathic, to be further evaluated 3. Moderate to severe MR 4. Moderate to severe TR with no pulmonary HTN 5. HTN PLAN: 1. Initiate Coreg in substitution for Toprol XL 2. D/C IV Cardizem 3. Initiate IV Amiodarone for additional load 4. May consider the addition of Digoxin 5. Continue Diovan 6. Continue Eliquis 7. Recommend [facility] coronary angiography for further evaluation of the above noted LV systolic dysfunction 8. Outpatient evaluation for possible AF/A-flutter RFA Above discussed in detail with the patient Araceli Welch MD
[2016-02-24] MEDS ORDERED: PT OWN MED DRAWER 7, Y5N ONE ×2 (08:43→20:19)
[2016-02-24] MEDS: CARVEDILOL 25 MG TABLET (FP) PO SCH ×3 (08:48→21:50)
[2016-02-24] MEDS: AMIODARONE HCL INJECTION 450 MG in DEXTROSE 5%-WATER - 241 ML IVPB SCH (08:48)
[2016-02-24] MEDS: APIXABAN 5 MG TABLET PO SCH ×2 (09:39→21:50)
[2016-02-24] MEDS: VALSARTAN 80 MG TABLET (UD) PO SCH (09:39)
--- NOTE | 2016-02-24 10:19 | PN ---
Progress Note, Physician - Current Medication List Current Medications: Active Medications Apixaban (Eliquis -) 5 mg PO BID [facility] Last Admin: 02/24/16 09:39 Dose: 5 mg Carvedilol (Coreg -) 25 mg PO BID [facility] Last Admin: 02/24/16 09:29 Dose: Not Given Amiodarone HCl 450 mg/ (Dextrose) 250 mls @ 16.66 mls/hr IVPB TITR JOSEPH; 0.5 MG/ MIN PRN Reason: Protocol Last Admin: 02/24/16 08:48 Dose: 16.66 mls/hr Valsartan (Diovan -) 80 mg PO DAILY [facility] Last Admin: 02/24/16 09:39 Dose: 80 mg - Objective Vital Signs: Vital Signs Temperature 98.7 F 02/24/16 06:00 Pulse Rate 125 H 02/24/16 08:00 Respiratory Rate 18 02/24/16 08:00 Blood Pressure 148/117 02/24/16 08:00 O2 Sat by Pulse Oximetry (%) 98 02/23/16 21:00 Constitutional: Yes: Well Nourished, No Distress, Calm Eyes: Yes: WNL, Conjunctiva Clear HENT: Yes: WNL, Atraumatic, Normocephalic Neck: Yes: WNL, Supple, Trachea Midline Cardiovascular: No: Regular Rate and Rhythm Respiratory: Yes: WNL, Regular, CTA Bilaterally Gastrointestinal: Yes: WNL, Normal Bowel Sounds Musculoskeletal: Yes: WNL Extremities: Yes: WNL Edema: No Integumentary: Yes: WNL Neurological: Yes: WNL, Alert, Oriented ...Motor Strength: WNL Psychiatric: Yes: WNL Labs: CBC, BMP 02/23/16 05:55 02/23/16 05:55 INR, PTT INR 1.53 (0.82-1.09) H 02/21/16 06:04 Impression/Plan Impression/Plan: 55 year old man admitted for afib with RVR -s/p D/C cardioversion as HR was not controlled medically -echo shows poor EF likely from tachycardia induced cardiomyopathy -was started on amiodarone PO -was in normal sinus rhythm after procedure but again went into afib with RVR yesterday -metoprolol succinate increased to 100 BID but was still tachycardic -cardio attending started cardizem drip then changed to amiodarone drip and changed metoprolol to carvedilol -follow up with cardio attending for repeat cardioversion or transfer for ablation -cont on valsartan -cont elquis -will need repeat echo in 3-4 months to asses if EF has improved with medical management -will have holter monitor as an outpatient at a later date to asses if pt is sustained in NSR at which point amiodarone will be tapered off to avoid pulm fibrosis with [facility] use Visit type - Emergency Visit Emergency Visit: Yes ED Registration Date: 02/20/16 Care time: The patient presented to the Emergency Department on the above date and was hospitalized for further evaluation of their emergent condition. - New Patient This patient is new to me today: No - Critical Care Critical Care patient: Yes Total Critical Care Time (in minutes): 38 Critical Care Statement: The care of this patient involved high complexity decision making to prevent further life threatening deterioration of the patient 's condition and/or to evalute & treat vital organ system(s) failure or risk of failure.
--- NOTE | 2016-02-24 11:16 | PN ---
Progress Note (short form) - Note Progress Note: PULMONARY/CCM Pt seen and examined in the ICU. Remains in atrial fibrillation on amiodarone gtt but rate better controlled. Still with some palpitations but denies shortness of breath or chest pain. Last Vital Signs Temp Pulse Resp BP Pulse Ox 98.7 F 93 H 17 113/76 98 02/24/16 06:00 02/24/16 10:00 02/24/16 10:00 02/24/16 10:00 02/23/16 21:00 Intake & Output 02/21/16 02/22/16 02/23/16 02/24/16 23:59 23:59 23:59 23:59 Intake Total 400 930 350 Output Total 350 400 800 Balance 50 530 350 -800 Weight 235 lb 232 lb Gen: NAD at rest Heart: irregular Lung: basilar rales on right Abd: soft, nontender Ext: no edema CBC, BMP 02/23/16 05:55 02/23/16 05:55 Active Medications Apixaban (Eliquis -) 5 mg PO BID [facility] Last Admin: 02/24/16 09:39 Dose: 5 mg Carvedilol (Coreg -) 25 mg PO BID [facility] Last Admin: 02/24/16 09:29 Dose: Not Given Amiodarone HCl 450 mg/ (Dextrose) 250 mls @ 16.66 mls/hr IVPB TITR JOSEPH; 0.5 MG/ MIN PRN Reason: Protocol Last Admin: 02/24/16 08:48 Dose: 16.66 mls/hr Valsartan (Diovan -) 80 mg PO DAILY [facility] Last Admin: 02/24/16 09:39 Dose: 80 mg A/P Paroxysmal Atiral Fibrillation with RVR LV Systolic Dysfunction Mitral Regurgitation HTN - rate control with coreg, amiodarone - continue anticoagulation - O2 as needed - for catheterization per cardiology
--- NOTE | 2016-02-24 23:42 | EKG ---
Test Reason : Blood Pressure : / mmHG Vent. Rate : 127 BPM Atrial Rate : 254 BPM P-R Int : 000 ms QRS Dur : 080 ms QT Int : 196 ms P-R-T Axes : 051 042 -16 degrees QTc Int : 284 ms ATRIAL FLUTTER WITH 2:1 A-V CONDUCTION ANTEROLATERAL INFARCT , AGE UNDETERMINED MARKED ST ABNORMALITY, POSSIBLE INFERIOR SUBENDOCARDIAL INJURY ABNORMAL ECG WHEN COMPARED WITH ECG OF 23-FEB-2016 05:38, INCOMPLETE RIGHT BUNDLE BRANCH BLOCK IS NO LONGER PRESENT ANTERIOR INFARCT IS NOW PRESENT ANTEROLATERAL INFARCT IS NOW PRESENT Confirmed by JUHI ALBERT MD ([id number]) on 02/24/2016 11:41:40 PM Referred By: Confirmed By:JUHI ALBERT MD
--- NOTE | 2016-02-24 23:43 | EKG ---
Test Reason : Blood Pressure : / mmHG Vent. Rate : 104 BPM Atrial Rate : 300 BPM P-R Int : 000 ms QRS Dur : 098 ms QT Int : 358 ms P-R-T Axes : 000 072 -23 degrees QTc Int : 470 ms ATRIAL FIBRILLATION WITH RAPID VENTRICULAR RESPONSE NONSPECIFIC ST ABNORMALITY ABNORMAL QRS-T ANGLE, CONSIDER PRIMARY T WAVE ABNORMALITY ABNORMAL ECG WHEN COMPARED WITH ECG OF 23-FEB-2016 06:13, ATRIAL FIBRILLATION HAS REPLACED ATRIAL FLUTTER CRITERIA FOR ANTERIOR INFARCT ARE NO LONGER PRESENT CRITERIA FOR ANTEROLATERAL INFARCT ARE NO LONGER PRESENT ST LESS DEPRESSED IN INFERIOR LEADS NONSPECIFIC T WAVE ABNORMALITY NO LONGER EVIDENT IN LATERAL LEADS Confirmed by ROOSEVELT DEL CASTILLO, JUHI ([id number]) on 02/24/2016 11:42:52 PM Referred By: SIENA ALSTON Confirmed By:JUHI ALBERT MD
[2016-02-25 05:54] LABS: BASOPHIL 0.6 % (0-2.0); EOSINOPHIL 3.1 % (0-4.5); MCH 28.2 pg (25.7-33.7); MCHC 32.2 g/dl (32.0-35.9); MEAN CELL VOLUME 87.6 fl (80-96); MEAN PLT VOLUME 9.7 fl (7.5-11.1); NEUTROPHILS 68.7 % (42.8-82.8); PLATELET COUNT 192 K/MM3 (134-434); RDW 14.3 % (11.9-15.9)
[2016-02-25 06:18] LABS: CALCIUM 8.5 mg/dL (8.5-10.1); CREATININE 1.4 mg/dL (0.7-1.3)
[2016-02-25] MEDS: AMIODARONE HCL INJECTION 450 MG in DEXTROSE 5%-WATER - 241 ML IVPB SCH (07:06)
--- NOTE | 2016-02-25 08:20 | PN ---
Progress Note (short form) - Note Progress Note: Chief Complaint: Events noted, notes reviewed, denies any chest pain but reports dyspnea, persistent atrial fibrillation, post repeat cardioversion (2 unsuccessful sessions, multiple attempts ) History of Present Illness: Seen and examined in the ICU. Events noted, notes reviewed, denies any chest pain but reports dyspnea, persistent atrial fibrillation, post repeat cardioversion (2 unsuccessful sessions, multiple attempts ) Echocardiography revealed severe LV systolic dysfunction, bi-atrial dilatation, moderate to severe MR and TR with no evidence of pulmonary HTN As outlined in yesterdays note doubt if repeat cardioversion would be successful given above clinical presentation and significant bi-atrial dilatation, would recommend optimization of medical therapy and consideration for AF/A-flutter RFA which can be done as outpatient - Current Medication List Current Medications Apixaban (Eliquis -) 5 mg PO BID [facility] Last Admin: 02/24/16 21:50 Dose: 5 mg Carvedilol (Coreg -) 25 mg PO BID [facility] Last Admin: 02/24/16 21:50 Dose: 25 mg Amiodarone HCl 450 mg/ (Dextrose) 250 mls @ 16.66 mls/hr IVPB TITR [facility]; 0.5 MG/ MIN PRN Reason: Protocol Last Admin: 02/24/16 08:48 Dose: 16.66 mls/hr Valsartan (Diovan -) 80 mg PO DAILY [facility] Last Admin: 02/24/16 09:39 Dose: 80 mg - Review of Systems Constitutional: denies: Chills, Fever Cardiovascular: As noted above Respiratory: denies: Cough or Sputum Production Gastrointestinal: denies: Nausea, Vomiting, Diarrhea, Constipation or Abdominal Pain Genitourinary: denies: Dysuria Musculoskeletal: denies: Joint Pain Neurological: denies: Dizziness or Headache - Objective Vital Signs: Last Vital Signs Temp Pulse Resp BP Pulse Ox 98.1 F 119 H 21 117/98 98 02/25/16 06:00 02/25/16 06:00 02/25/16 06:00 02/25/16 06:00 02/24/16 21:00 Neck: Supple Negative JVD No Bruit Cardiovascular: S1 S2 Irregularly Irregular grade 1/6 Systolic Murmur Respiratory: Bilateral Basal Rales Gastrointestinal: Soft Benign Normal Bowel Sounds Ext: No Edema Labs: CBC, BMP 02/25/16 05:00 02/25/16 05:00 INR, PTT INR 1.53 (0.82-1.09) H 02/21/16 06:04 Assessment/Plan ASSESSMENT: 1. Systolic LV dysfunction related to cardiomyopathy unclear ischemic vs. idiopathic, to be further evaluated with class II NYHA classification LV failure 2. Paroxysmal atrial fibrillation/paroxysmal atrial flutter post failed cardioversion (2 unsuccessful sessions, multiple attempts) [id number] score 1 on NAOC's 3. Moderate to severe MR 4. Moderate to severe TR with no pulmonary HTN 5. HTN, not at goal 6. Acute renal insufficiency PLAN: 1. Continue Coreg 2. Initiate Digoxin with caution 3. Continue Amiodarone but switch to PO 4. Continue Diovan and titrate dosage with caution considering the above noted renal insufficiency 5. Continue Eliquis 6. Initiate Lasix and Aldactone with caution 7. Recommend [facility] coronary angiography for further evaluation of the above noted LV systolic dysfunction 8. Outpatient evaluation for possible AF/A-flutter RFA Above discussed in detail with the patient Araceli Welch MD
--- NOTE | 2016-02-25 08:23 | PN ---
Progress Note, Physician - Current Medication List Current Medications: Active Medications Apixaban (Eliquis -) 5 mg PO BID [facility] Last Admin: 02/24/16 21:50 Dose: 5 mg Carvedilol (Coreg -) 25 mg PO BID [facility] Last Admin: 02/24/16 21:50 Dose: 25 mg Amiodarone HCl 450 mg/ (Dextrose) 250 mls @ 16.66 mls/hr IVPB TITR [facility]; 0.5 MG/ MIN PRN Reason: Protocol Last Admin: 02/24/16 08:48 Dose: 16.66 mls/hr Valsartan (Diovan -) 80 mg PO DAILY [facility] Last Admin: 02/24/16 09:39 Dose: 80 mg - Objective Vital Signs: Vital Signs Temperature 98.1 F 02/25/16 06:00 Pulse Rate 119 H 02/25/16 06:00 Respiratory Rate 21 02/25/16 06:00 Blood Pressure 117/98 02/25/16 06:00 O2 Sat by Pulse Oximetry (%) 98 02/24/16 21:00 Constitutional: Yes: Well Nourished, No Distress, Calm Eyes: Yes: WNL, Conjunctiva Clear HENT: Yes: WNL, Atraumatic, Normocephalic Neck: Yes: WNL, Supple, Trachea Midline Cardiovascular: Yes: Tachycardia. No: Regular Rate and Rhythm Respiratory: Yes: WNL, Regular, CTA Bilaterally Gastrointestinal: Yes: WNL, Normal Bowel Sounds Musculoskeletal: Yes: WNL Extremities: Yes: WNL Edema: No Integumentary: Yes: WNL Neurological: Yes: WNL, Alert, Oriented ...Motor Strength: WNL Psychiatric: Yes: WNL Labs: CBC, BMP 02/25/16 05:00 02/25/16 05:00 INR, PTT INR 1.53 (0.82-1.09) H 02/21/16 06:04 Impression/Plan Impression/Plan: 55 year old man admitted for afib with RVR -s/p D/C cardioversion as HR was not controlled medically -echo shows poor EF likely from tachycardia induced cardiomyopathy -was started on amiodarone PO -was in normal sinus rhythm after procedure but again went into afib with RVR yesterday -metoprolol succinate increased to 100 BID but was still tachycardic -cardio attending started cardizem drip then changed to amiodarone drip and changed metoprolol to carvedilol -follow up with cardio attending for repeat cardioversion or transfer for ablation -cont on valsartan -cont elquis -will need repeat echo in 3-4 months to asses if EF has improved with medical management -will have holter monitor as an outpatient at a later date to asses if pt is sustained in NSR at which point amiodarone will be tapered off to avoid pulm fibrosis with assisted use Visit type - Emergency Visit Emergency Visit: Yes ED Registration Date: 02/20/16 Care time: The patient presented to the Emergency Department on the above date and was hospitalized for further evaluation of their emergent condition. - New Patient This patient is new to me today: No - Critical Care Critical Care patient: Yes Total Critical Care Time (in minutes): 40 Critical Care Statement: The care of this patient involved high complexity decision making to prevent further life threatening deterioration of the patient 's condition and/or to evalute & treat vital organ system(s) failure or risk of failure.
[2016-02-25] MEDS ORDERED: PT OWN MED DRAWER 7, Y5N ONE (09:38)
[2016-02-25] MEDS: CARVEDILOL 25 MG TABLET (FP) PO SCH ×2 (09:48→21:40)
[2016-02-25] MEDS: APIXABAN 5 MG TABLET PO SCH ×2 (09:50→21:40)
[2016-02-25] MEDS ORDERED: DIGOXIN 0.125 MG TABLET (FP) PO SCH (10:00)
[2016-02-25] MEDS ORDERED: FUROSEMIDE 40 MG/4 ML INJECTABLE VIAL IVPUSH SCH (10:00)
[2016-02-25] MEDS ORDERED: VALSARTAN 160 MG TABLET (UD) PO SCH (10:00)
[2016-02-25] MEDS ORDERED: AMIODARONE HCL 200 MG TABLET (FP) PO SCH (10:00)
[2016-02-25] MEDS ORDERED: SPIRONOLACTONE 25 MG TABLET (FP) PO SCH (10:00)
--- NOTE | 2016-02-25 12:02 | PN ---
Progress Note (short form) - Note Progress Note: PULMONARY/CCM Pt seen and examined in the ICU. Off amiodarone gtt but rate better controlled. Still with some palpitations but denies shortness of breath or chest pain. Last Vital Signs Temp Pulse Resp BP Pulse Ox 97.8 F 117 H 20 128/100 98 02/25/16 09:45 02/25/16 09:50 02/25/16 09:45 02/25/16 09:45 02/24/16 21:00 Intake & Output 02/22/16 02/23/16 02/24/16 02/25/16 23:59 23:59 23:59 23:59 Intake Total 930 350 876 270 Output Total 400 800 600 Balance 530 350 76 -330 Weight 232 lb 232 lb 1.6 oz Gen: NAD at rest Heart: irregular Lung: basilar rales on right Abd: soft, nontender Ext: no edema CBC, BMP 02/25/16 05:00 02/25/16 05:00 Active Medications Amiodarone HCl (Cordarone -) 200 mg PO DAILY [facility] Last Admin: 02/25/16 09:47 Dose: 200 mg Apixaban (Eliquis -) 5 mg PO BID [facility] Last Admin: 02/25/16 09:50 Dose: 5 mg Carvedilol (Coreg -) 25 mg PO BID [facility] Last Admin: 02/25/16 09:48 Dose: 25 mg Digoxin (Lanoxin -) 0.125 mg PO DAILY [facility] Last Admin: 02/25/16 09:50 Dose: 0.125 mg Furosemide (Lasix Injection -) 40 mg IVPUSH DAILY [facility] Last Admin: 02/25/16 09:53 Dose: 40 mg Spironolactone (Aldactone -) 25 mg PO DAILY [facility] Last Admin: 02/25/16 09:46 Dose: 25 mg Valsartan (Diovan -) 160 mg PO DAILY [facility] Last Admin: 02/25/16 09:50 Dose: 160 mg A/P Paroxysmal Atiral Fibrillation with RVR LV Systolic Dysfunction Mitral Regurgitation HTN - rate control with coreg, amiodarone, digoxin - continue anticoagulation - lasix, aldactone - monitor urine output, creatinine - O2 as needed - for catheterization per cardiology - can monitor on telemetry
[2016-02-25] MEDS ORDERED: AMIODARONE HCL 150 MG/3 ML VIAL IVPB ONE (13:31)
[2016-02-26 06:15] LABS: BASOPHIL 0.8 % (0-2.0); MCH 28.5 pg (25.7-33.7); MCHC 32.3 g/dl (32.0-35.9); MEAN CELL VOLUME 88.3 fl (80-96); MEAN PLT VOLUME 9.6 fl (7.5-11.1); NEUTROPHILS 66.1 % (42.8-82.8); PLATELET COUNT 210 K/MM3 (134-434); RDW 14.2 % (11.9-15.9); WHITE BLOOD COUNT 12.2 K/mm3 (4.0-10.0)
[2016-02-26 06:45] LABS: CALCIUM 8.7 mg/dL (8.5-10.1)
[2016-02-26 06:46] LABS: CREATININE 1.4 mg/dL (0.7-1.3)
[2016-02-26] MEDS ORDERED: PT OWN MED DRAWER 7, Y5N ONE ×3 (08:36→20:26)
--- NOTE | 2016-02-26 09:55 | PN ---
Progress Note, Physician Chief Complaint: Events noted Currently in atrial fibrillation/flutter with rapid ventricular response. Transferred to ICU over the weekend Failed multiple cardioversions History of Present Illness: Patient was seen and examined. Awake and alert. Chart was reviewed Denies chest pain or shortness breath Atrial fibrillation/flutter with rapid ventricular response - Current Medication List Current Medications: Active Medications Amiodarone HCl (Cordarone -) 200 mg PO DAILY [facility] Apixaban (Eliquis -) 5 mg PO BID [facility] Last Admin: 02/25/16 21:40 Dose: 5 mg Carvedilol (Coreg -) 25 mg PO BID [facility] Last Admin: 02/25/16 21:40 Dose: 25 mg Digoxin (Lanoxin -) 0.125 mg PO DAILY [facility] Furosemide (Lasix Injection -) 40 mg IVPUSH DAILY [facility] Spironolactone (Aldactone -) 25 mg PO DAILY [facility] Valsartan (Diovan -) 160 mg PO DAILY [facility] - Objective Vital Signs: Vital Signs Temperature 98.4 F 02/26/16 06:00 Pulse Rate 128 H 02/26/16 08:00 Respiratory Rate 22 02/26/16 08:00 Blood Pressure 113/85 02/26/16 08:00 O2 Sat by Pulse Oximetry (%) 97 02/25/16 21:00 Neck: Yes: Supple Cardiovascular: Yes: Tachycardia, Pulse Irregular, S1, S2 Respiratory: Yes: Diminished Gastrointestinal: Yes: Normal Bowel Sounds, Soft. No: Tenderness Edema: No Additional Findings/Remarks: - Review of Systems Constitutional: denies: Chills, Fever Cardiovascular: denies: Chest Pain, Palpitations, Shortness of Breath Respiratory: denies: SOB. denies: Cough, Hemoptysis, Orthopnea, PND Gastrointestinal: denies: Abdominal Pain, Constipation, Diarrhea, Melena, Nausea , Rectal Bleeding, Vomiting Genitourinary: denies: Dysuria Musculoskeletal: denies: Joint Pain Neurological: denies: Dizziness, Headache, Seizure, Syncope Labs: CBC, BMP 02/26/16 05:00 02/26/16 05:00 Problem List - Problems (1) Rapid atrial fibrillation Code(s): I48.91 - UNSPECIFIED ATRIAL FIBRILLATION (2) Systolic dysfunction, left ventricle Code(s): I51.9 - HEART DISEASE, UNSPECIFIED (3) Tachycardia induced cardiomyopathy Code(s): R00.0 - TACHYCARDIA, UNSPECIFIED I43 - CARDIOMYOPATHY IN DISEASES CLASSIFIED ELSEWHERE (4) Atrial flutter with rapid ventricular response Code(s): I48.92 - UNSPECIFIED ATRIAL FLUTTER Assessment/Plan 1. Recurrence of atrial fibrillation/flutter with rapid ventricular response 2. LV systolic dysfunction with MR and TR and left atrial dilatation 3. Renal insufficiency PLAN: 1. Currently started on Carvedilol 25 mg BID and Digoxin 0.125 mg QD. Check dig level. 2. Continue Amiodarone 3. Aldactone and Furosemide IV 4. Continue Diovan as renal function tolerates 5. In view of failed cardioversion attempt, he will need EPS/RFA for rhythm control. In the interim, he is going to need better rate control measures. Further plans are to follow. Rich Patel MD
[2016-02-26] MEDS: VALSARTAN 160 MG TABLET (UD) PO SCH (09:57)
[2016-02-26] MEDS: AMIODARONE HCL 200 MG TABLET (FP) PO SCH (09:57)
[2016-02-26] MEDS: CARVEDILOL 25 MG TABLET (FP) PO SCH ×2 (09:58→21:17)
[2016-02-26] MEDS: SPIRONOLACTONE 25 MG TABLET (FP) PO SCH (09:58)
[2016-02-26] MEDS ORDERED: DIGOXIN 0.125 MG TABLET (FP) PO SCH (10:00)
[2016-02-26] MEDS ORDERED: FUROSEMIDE 40 MG/4 ML INJECTABLE VIAL IVPUSH SCH (10:00)
[2016-02-26] MEDS ORDERED: DIGOXIN 0.5 MG/2 ML AMPUL IVPUSH ONE (11:43)
--- NOTE | 2016-02-26 11:45 | PN ---
<Gavin Dan - Last Filed: 02/26/16 14:44> Physical Exam: ATTENDING PHYSICIAN STATEMENT I saw and evaluated the patient. I reviewed the resident's note and discussed the case with the resident. I agree with the resident's findings and plan as documented. SUBJECTIVE: seen and evaluated at the bedside OBJECTIVE: resting comfortably in bed, irregular rhythm, tachcardic ASSESSMENT AND PLAN: 55 year old man admitted for afib with RVR -s/p D/C cardioversion as HR was not controlled medically -echo shows poor EF likely from tachycardia induced cardiomyopathy -was started on amiodarone PO -was in normal sinus rhythm after procedure but again went into afib with RVR over the weekend -metoprolol succinate increased to 100 BID but was still tachycardic -cardio attending started cardizem drip then changed to amiodarone drip and changed metoprolol to carvedilol -now on PO amiodarone, carvedilol, and Digoxin but HR still in 120's -will likely need RF ablation; follow up with Cardio -cont on valsartan -cont spirinolactone -cont lasix -cont elquis <Roxanen Martinez - Last Filed: 02/26/16 16:15> Physical Exam: SUBJECTIVE: Patient seen and examined at bed side in ICU. patient A-Fib with RVR, 120's and 130's,currently asymptomatic., denies cp, sob, n/v/d/, fevers, chills. OBJECTIVE: Vital Signs Period Temp Pulse Resp BP Sys/Cervantes Pulse Ox Last 24 Hr 97.3 F-98.4 F 109-139 17-23 103-137/66-112 97-99 GENERAL: The patient is awake, alert, and fully oriented, in no acute distress. HEAD: Normal with no signs of trauma. EYES: PERRL, extraocular movements intact, sclera anicteric, conjunctiva clear. No ptosis. ENT: Ears normal, nares patent, oropharynx clear without exudates, moist mucous membranes. NECK: Trachea midline, full range of motion, supple. LUNGS: Breath sounds equal, clear to auscultation bilaterally, no wheezes, no crackles, no accessory muscle use. HEART: tachy irregular irregular S1, S2 without murmur, rub or gallop. ABDOMEN: Soft, nontender, nondistended, normoactive bowel sounds, no guarding, no rebound, no hepatosplenomegaly, no masses. EXTREMITIES: 2+ pulses, warm, well-perfused, no edema. NEUROLOGICAL: Cranial nerves II through XII grossly intact. Normal speech, gait not observed. PSYCH: Normal mood, normal affect. SKIN: Warm, dry, normal turgor, no rashes or lesions noted Laboratory Results - last 24 hr 02/26/16 02/26/16 05:00 05:00 WBC 12.2 H RBC 5.97 H Hgb 17.0 H Hct 52.7 H MCV 88.3 MCHC 32.3 RDW 14.2 Plt Count 210 MPV 9.6 Neutrophils % 66.1 Lymphocytes % 19.1 Monocytes % 11.0 H Eosinophils % 3.0 Basophils % 0.8 Sodium 139 Potassium 4.3 Chloride 104 Carbon Dioxide 25 Anion Gap 10 BUN 21 H Creatinine 1.4 H Random Glucose 96 Calcium 8.7 Active Medications Generic Name Dose Route Start Last Admin Trade Name Freq PRN Reason Stop Dose Admin Amiodarone HCl 200 mg 02/26/16 10:00 02/26/16 09:57 Cordarone - PO 200 mg DAILY [facility] Administration Apixaban 5 mg 02/25/16 22:00 02/25/16 21:40 Eliquis - PO 5 mg BID [facility] Administration Carvedilol 25 mg 02/25/16 22:00 02/26/16 09:58 Coreg - PO 25 mg BID [facility] Administration Digoxin 0.125 mg 02/26/16 10:00 02/26/16 09:57 Lanoxin - PO 0.125 mg DAILY [facility] Administration Digoxin 0.25 mg 02/26/16 11:43 Lanoxin Injection - IVPUSH 02/26/16 11:44 ONCE ONE Furosemide 40 mg 02/26/16 10:00 02/26/16 09:59 Lasix Injection - IVPUSH 40 mg DAILY [facility] Administration Spironolactone 25 mg 02/26/16 10:00 02/26/16 09:58 Aldactone - PO 25 mg DAILY [facility] Administration Valsartan 160 mg 02/26/16 10:00 02/26/16 09:57 Diovan - PO 160 mg DAILY [facility] Administration ASSESSMENT/PLAN: 55 year old male, px medical history of AFIB on eliquis, who present with chest pain and palpitations, found to be in asymptomatic AFIB in RVR , being admitted for cardioversion. 1.) AFIB with RVR on eliquis:-HR was not controlled medically s/p D/C cardioversion x2(unsuccessful), currently atrial arrhythmia - now in Afib with RVR HR 130' to 140's. -metoprol changed to succinate 50 BID -cont on amiodarone -cont on valsartan - Needs better rate control. Will need EPS/RFA as per Cardiology. -Cardizem given for rate control, continue with beta kelley -will continue Elequist -Change Toprol XL 50 bid, start Diovan 80 qd and amio 200 bid, with up titration as tolerated, -Plan for RYAN-guided DCCV as rate-control remains suboptimal. -Given digoxin IV today by cardiology will assess response -monitor dig level -will likely need RF ablation; follow up with Cardio 2) LV systolic dysfunction with MR, TR, suspect tachycardia-mediated etiology-( echo shows poor EF likely from tachycardia induced cardiomyopathy) -Reassess LV fxn in future once rate/rhythm control established -will need repeat echo in 3-4 months to asses if EF has improved with medical management -cont Toprol XL. Continue Diovan as tolerated. Continue Amiodarone 200 mg BID. monitor on telemetry -cont Lasix 3)AZ ruled out 4.) DVT on prophylaxis, on eliquis FEn oral hydrate, currently no IVF needed, on lasix replete electrolytes as needed regular diet DVT PPx:Eliquis no GI PPx needed dispo: cont ICU Visit type - Emergency Visit Emergency Visit: Yes ED Registration Date: 02/20/16 Care time: The patient presented to the Emergency Department on the above date and was hospitalized for further evaluation of their emergent condition. - New Patient This patient is new to me today: No - Critical Care Critical Care patient: No
--- NOTE | 2016-02-26 13:33 | PN ---
Progress Note, Physician History of Present Illness: patient seen and examined no complaints HR still uncontrolled - Current Medication List Current Medications: Active Medications Amiodarone HCl (Cordarone -) 200 mg PO DAILY [facility] Last Admin: 02/26/16 09:57 Dose: 200 mg Apixaban (Eliquis -) 5 mg PO BID [facility] Last Admin: 02/25/16 21:40 Dose: 5 mg Carvedilol (Coreg -) 25 mg PO BID [facility] Last Admin: 02/26/16 09:58 Dose: 25 mg Digoxin (Lanoxin -) 0.125 mg PO DAILY [facility] Last Admin: 02/26/16 09:57 Dose: 0.125 mg Furosemide (Lasix Injection -) 40 mg IVPUSH DAILY [facility] Last Admin: 02/26/16 09:59 Dose: 40 mg Spironolactone (Aldactone -) 25 mg PO DAILY [facility] Last Admin: 02/26/16 09:58 Dose: 25 mg Valsartan (Diovan -) 160 mg PO DAILY [facility] Last Admin: 02/26/16 09:57 Dose: 160 mg - Objective Vital Signs: Vital Signs Temperature 97.3 F L 02/26/16 10:00 Pulse Rate 116 H 02/26/16 12:00 Respiratory Rate 22 02/26/16 12:00 Blood Pressure 94/74 02/26/16 12:00 O2 Sat by Pulse Oximetry (%) 99 02/26/16 11:39 Constitutional: Yes: Well Nourished, No Distress Eyes: Yes: WNL, Conjunctiva Clear, EOM Intact HENT: Yes: Atraumatic Neck: Yes: Supple Cardiovascular: Yes: Tachycardia, Pulse Irregular Respiratory: Yes: Other (fine crackles on the left bases clear on the right) Gastrointestinal: Yes: Soft Edema: No Integumentary: Yes: WNL ...Motor Strength: WNL Labs: CBC, BMP 02/26/16 05:00 02/26/16 05:00 INR, PTT INR 1.53 (0.82-1.09) H 02/21/16 06:04 Assessment/Plan 55 year old male, px medical history of AFIB on eliquis transferred to ICU for rate control and cardioversion 1.) AFIB with RVR on eliquis:-HR was not controlled on current medications. s/ p cardioversion attempts x2 unsuccessful. continue amiodarone continue valsartan Cardiology consult appreciated. Needs better rate control. Will need EPS/RFA. Continue cardizem will continue eliquis Given digoxin IV today by cardiology will assess response check digoxin level 2) LV systolic dysfunction Repeat Echo as outpt continue valsartan Continue Amiodarone continue daily lasix FEN: no IVF overloaded on lasix no electrolyte issues on diet PPx: Eliquis no GI PPx needed no deconditioning issues
[2016-02-26] MEDS ORDERED: DIGOXIN 0.5 MG/2 ML AMPUL ONE (14:40)
[2016-02-26] MEDS: APIXABAN 5 MG TABLET PO SCH ×2 (14:47→21:17)
--- NOTE | 2016-02-26 15:09 | PN ---
Teaching Attending Note Name of Resident: Cornel Márquez ATTENDING PHYSICIAN STATEMENT I saw and evaluated the patient. I reviewed the resident's note and discussed the case with the resident. I agree with the resident's findings and plan as documented. SUBJECTIVE: Patient seen and examined in the ICU. Awake and alert. Denies CP or SOB. Remains in Rapid AFib with rates 120's to 130's Intake & Output 02/23/16 02/24/16 02/25/16 02/26/16 23:59 23:59 23:59 23:59 Intake Total 584 278 0105 200 Output Total 800 600 Balance 350 76 421 200 Weight 232 lb 232 lb 1.6 oz Last Vital Signs Temp Pulse Resp BP Pulse Ox 97.3 F L 124 H 22 93/74 97 02/26/16 10:00 02/26/16 14:48 02/26/16 14:00 02/26/16 14:00 02/26/16 13:39 Active Medications Amiodarone HCl (Cordarone -) 200 mg PO DAILY [facility] Last Admin: 02/26/16 09:57 Dose: 200 mg Apixaban (Eliquis -) 5 mg PO BID [facility] Last Admin: 02/26/16 14:47 Dose: 5 mg Carvedilol (Coreg -) 25 mg PO BID [facility] Last Admin: 02/26/16 09:58 Dose: 25 mg Digoxin (Lanoxin -) 0.125 mg PO DAILY [facility] Last Admin: 02/26/16 09:57 Dose: 0.125 mg Furosemide (Lasix Injection -) 40 mg IVPUSH DAILY [facility] Last Admin: 02/26/16 09:59 Dose: 40 mg Spironolactone (Aldactone -) 25 mg PO DAILY [facility] Last Admin: 02/26/16 09:58 Dose: 25 mg Valsartan (Diovan -) 160 mg PO DAILY [facility] Last Admin: 02/26/16 09:57 Dose: 160 mg Gen: NAD at rest Heart: irregular Lung: basilar rales on right Abd: soft, nontender Ext: no edema A/P Paroxysmal Atiral Fibrillation with RVR LV Systolic Dysfunction Mitral Regurgitation HTN Apparently he was ruled out for sleep apnea at [place] this past summer - rate control with coreg, amiodarone, digoxin - continue anticoagulation - lasix, aldactone - monitor urine output, creatinine - O2 as needed - Should review sleep study data - For possible EP workup per cardiology - Telemetry monitoring Dr Kapadia CCTime 35"
[2016-02-27 06:12] LABS: MCH 28.6 pg (25.7-33.7); MCHC 32.3 g/dl (32.0-35.9); MEAN CELL VOLUME 88.5 fl (80-96); MEAN PLT VOLUME 9.7 fl (7.5-11.1); PLATELET COUNT 217 K/MM3 (134-434); RDW 14.6 % (11.9-15.9); WHITE BLOOD COUNT 10.8 K/mm3 (4.0-10.0)
[2016-02-27 06:28] LABS: CALCIUM 8.7 mg/dL (8.5-10.1); CREATININE 1.7 mg/dL (0.7-1.3)
[2016-02-27 06:42] LABS: DIGOXIN LEVEL 0.9005 ng/ml (0.8-2.0)
--- NOTE | 2016-02-27 07:33 | PN ---
Progress Note (short form) - Note Progress Note: Chief Complaint: Events noted, notes reviewed, denies any chest pain or dyspnea , persistent atrial fibrillation with periods of rapid ventricular response, post repeat cardioversion (2 unsuccessful sessions, multiple attempts) History of Present Illness: Seen and examined in the ICU. Events noted, notes reviewed, denies any chest pain or dyspnea, persistent atrial fibrillation with periods of rapid ventricular response, post repeat cardioversion (2 unsuccessful sessions, multiple attempts) Discussed in detail with the patient further plans including proceeding with [facility]& [facility] catheterization coronary angiography, risk, benefits and alternatives reviewed agreeable be scheduled at [facility], and eventually EPS +/ - RFA at [facility] as per patient request Echocardiography revealed severe LV systolic dysfunction, bi-atrial dilatation, moderate to severe MR and TR with no evidence of pulmonary HTN - Current Medication List Current Medications Amiodarone HCl (Cordarone -) 200 mg PO DAILY [facility] Last Admin: 02/26/16 09:57 Dose: 200 mg Apixaban (Eliquis -) 5 mg PO BID [facility] Last Admin: 02/26/16 21:17 Dose: 5 mg Carvedilol (Coreg -) 25 mg PO BID [facility] Last Admin: 02/26/16 21:17 Dose: 25 mg Digoxin (Lanoxin -) 0.125 mg PO DAILY [facility] Last Admin: 02/26/16 09:57 Dose: 0.125 mg Furosemide (Lasix Injection -) 40 mg IVPUSH DAILY [facility] Last Admin: 02/26/16 09:59 Dose: 40 mg Spironolactone (Aldactone -) 25 mg PO DAILY [facility] Last Admin: 02/26/16 09:58 Dose: 25 mg Valsartan (Diovan -) 160 mg PO DAILY [facility] Last Admin: 02/26/16 09:57 Dose: 160 mg - Review of Systems Constitutional: denies: Chills, Fever Cardiovascular: As noted above Respiratory: denies: Cough or Sputum Production Gastrointestinal: denies: Nausea, Vomiting, Diarrhea, Constipation or Abdominal Pain Genitourinary: denies: Dysuria Musculoskeletal: denies: Joint Pain Neurological: denies: Dizziness or Headache - Objective Vital Signs: Last Vital Signs Temp Pulse Resp BP Pulse Ox 97.8 F 102 H 16 115/75 97 02/27/16 06:00 02/27/16 06:00 02/27/16 06:00 02/27/16 06:00 02/26/16 21:02 Neck: Supple Negative JVD No Bruit Cardiovascular: S1 S2 Irregularly Irregular grade 1/6 Systolic Murmur Respiratory: Bilateral Basal Rales Gastrointestinal: Soft Benign Normal Bowel Sounds Ext: No Edema Labs: CBC, BMP 02/27/16 05:00 02/27/16 05:00 INR, PTT INR 1.53 (0.82-1.09) H 02/21/16 06:04 Assessment/Plan ASSESSMENT: 1. Systolic LV dysfunction related to cardiomyopathy unclear ischemic vs. idiopathic, to be further evaluated with class I-II NYHA classification LV failure, compensated 2. Paroxysmal atrial fibrillation/paroxysmal atrial flutter post failed cardioversion (2 unsuccessful sessions, multiple attempts) [id number] score 1 on NAOC's with periods of rapid ventricular response 3. Moderate to severe MR 4. Moderate to severe TR with no pulmonary HTN 5. HTN 6. Acute renal insufficiency PLAN: 1. Continue Coreg and titrate dosage 2. Continue Digoxin with caution and close monitoring of level 3. Continue Amiodarone 4. Continue Diovan 5. Hold Eliquis pending the above noted procedure 6. Continue Aldactone with caution but D/C Lasix [facility]. [facility] for further evaluation of the above noted LV systolic dysfunction 8. Outpatient evaluation for possible AF/A-flutter RFA as outlined above Above discussed in detail with the patient Araceli Welch MD
--- NOTE | 2016-02-27 07:55 | PN ---
Physical Exam: SUBJECTIVE: Patient seen and examined at bed side in ICU. patient Julian-Kati with RVR, 110's and 130's,currently asymptomatic, denies cp, sob, n/v/d/, fevers, chills. transfer to [facility] OBJECTIVE: Vital Signs Period Temp Pulse Resp BP Sys/Cervantes Pulse Ox Last 24 Hr 97.2 F-97.9 F 93-139 11-23 89-133/63-87 97-99 GENERAL: The patient is awake, alert, and fully oriented, in no acute distress. HEAD: Normal with no signs of trauma. EYES: PERRL, extraocular movements intact, sclera anicteric, conjunctiva clear. No ptosis. ENT: Ears normal, nares patent, oropharynx clear without exudates, moist mucous membranes. NECK: Trachea midline, full range of motion, supple. LUNGS: Breath sounds equal, clear to auscultation bilaterally, no wheezes, no crackles, no accessory muscle use. HEART: tachy irregular irregular S1, S2 without murmur, rub or gallop. ABDOMEN: Soft, nontender, nondistended, normoactive bowel sounds, no guarding, no rebound, no hepatosplenomegaly, no masses. EXTREMITIES: 2+ pulses, warm, well-perfused, no edema. NEUROLOGICAL: Cranial nerves II through XII grossly intact. Normal speech, gait not observed. PSYCH: Normal mood, normal affect. SKIN: Warm, dry, normal turgor, no rashes or lesions noted Laboratory Results - last 24 hr 02/27/16 02/27/16 05:00 05:00 WBC 10.8 H RBC 6.11 H Hgb 17.5 H Hct 54.0 H MCV 88.5 MCHC 32.3 RDW 14.6 Plt Count 217 MPV 9.7 Sodium 141 Potassium 4.9 Chloride 103 Carbon Dioxide 29 Anion Gap 9 BUN 24 H Creatinine 1.7 H D Random Glucose 96 Calcium 8.7 Digoxin 0.9005 Active Medications Generic Name Dose Route Start Last Admin Trade Name Freq PRN Reason Stop Dose Admin Amiodarone HCl 200 mg 02/26/16 10:00 02/26/16 09:57 Cordarone - PO 200 mg DAILY JOSEPH Administration Carvedilol 37.5 mg 02/27/16 07:35 Coreg - PO BID [facility] Digoxin 0.25 mg 02/27/16 07:35 Lanoxin - PO DAILY [facility] Spironolactone 25 mg 02/26/16 10:00 02/26/16 09:58 Aldactone - PO 25 mg DAILY [facility] Administration Valsartan 160 mg 02/26/16 10:00 02/26/16 09:57 Diovan - PO 160 mg DAILY JOSEPH Administration Active Medications 55 year old male, px medical history of AFIB on eliquis, who present with chest pain and palpitations, found to be in asymptomatic AFIB in RVR , being admitted for cardioversion. 1.) AFIB with RVR on eliquis:-HR was not controlled medically s/p D/C cardioversion x2(unsuccessful), currently atrial arrhythmia - now in Afib with RVR HR 100's and up to -cardio will arrange cath at [place], then eventually EPS +/- RFA at [facility]. -Hold Eliquis pending the cardiac cath -Change Toprol XL 50 bid, start Diovan 80 qd and amio 200 bid, with up titration as tolerated, -Plan for RYAN-guided DCCV as rate-control remains suboptimal. -Given digoxin IV today by cardiology will assess response -monitor dig level -will likely need RF ablation; follow up with Cardio 2) LV systolic dysfunction with MR, TR, suspect tachycardia-mediated etiology-( echo shows poor EF likely from tachycardia induced cardiomyopathy) -Reassess LV fxn in future once rate/rhythm control established -will need repeat echo in 3-4 months to asses if EF has improved with medical management -Continue Diovan as tolerated. -Continue Amiodarone 200 mg BID. -Continue Coreg and titrate dosage -Continue Aldactone with caution but D/C Lasix -monitor on telemetry 3)[place] ruled out 4.) DVT on prophylaxis, on eliquis FEn oral hydrate, currently no IVF needed, replete electrolytes as needed regular diet DVT PPx:SCD hold Eliquis no GI PPx needed dispo: agree with transfer to [facility], cardio will arrange transfer to [facility]/ [facility], and eventually EPS +/- RFA at [facility] as per patient request Visit type - Emergency Visit Emergency Visit: Yes ED Registration Date: 02/20/16 Care time: The patient presented to the Emergency Department on the above date and was hospitalized for further evaluation of their emergent condition. - New Patient This patient is new to me today: No - Critical Care Critical Care patient: Yes Total Critical Care Time (in minutes): 45 Critical Care Statement: The care of this patient involved high complexity decision making to prevent further life threatening deterioration of the patient 's condition and/or to evalute & treat vital organ system(s) failure or risk of failure.
[2016-02-27] MEDS: AMIODARONE HCL 200 MG TABLET (FP) PO SCH (09:04)
[2016-02-27] MEDS: VALSARTAN 160 MG TABLET (UD) PO SCH (09:04)
[2016-02-27] MEDS: DIGOXIN 0.25 MG TABLET (FP) PO SCH (09:04)
[2016-02-27] MEDS: SPIRONOLACTONE 25 MG TABLET (FP) PO SCH (09:05)
[2016-02-27] MEDS: CARVEDILOL 25 MG TABLET (FP) PO SCH ×2 (09:05→22:18)
--- NOTE | 2016-02-27 12:53 | PN ---
Teaching Attending Note Name of Resident: Cornel Márquez ATTENDING PHYSICIAN STATEMENT I saw and evaluated the patient. I reviewed the resident's note and discussed the case with the resident. I agree with the resident's findings and plan as documented. SUBJECTIVE: Patient seen and examined in the ICU. Awake and alert. Denies CP or SOB. Remains in Rapid AFib with rates 120's to 130's Intake & Output 02/24/16 02/25/16 02/26/16 02/27/16 23:59 23:59 23:59 23:59 Intake Total 876 1021 980 940 Output Total 800 600 500 Balance 76 421 980 440 Weight 232 lb 232 lb 1.6 oz Last Vital Signs Temp Pulse Resp BP Pulse Ox 97.8 F 119 H 18 101/84 95 02/27/16 06:00 02/27/16 10:00 02/27/16 10:00 02/27/16 10:00 02/27/16 09:22 Active Medications Amiodarone HCl (Cordarone -) 200 mg PO DAILY [facility] Last Admin: 02/27/16 09:04 Dose: 200 mg Carvedilol (Coreg -) 37.5 mg PO BID [facility] Last Admin: 02/27/16 09:05 Dose: 37.5 mg Digoxin (Lanoxin -) 0.25 mg PO DAILY [facility] Last Admin: 02/27/16 09:04 Dose: 0.25 mg Spironolactone (Aldactone -) 25 mg PO DAILY [facility] Last Admin: 02/27/16 09:05 Dose: 25 mg Valsartan (Diovan -) 160 mg PO DAILY [facility] Last Admin: 02/27/16 09:04 Dose: 160 mg Gen: NAD at rest Heart: irregular Lung: basilar rales on right Abd: soft, nontender Ext: no edema Laboratory Results - last 24 hr 02/27/16 02/27/16 05:00 05:00 WBC 10.8 H RBC 6.11 H Hgb 17.5 H Hct 54.0 H MCV 88.5 MCHC 32.3 RDW 14.6 Plt Count 217 MPV 9.7 Sodium 141 Potassium 4.9 Chloride 103 Carbon Dioxide 29 Anion Gap 9 BUN 24 H Creatinine 1.7 H D Random Glucose 96 Calcium 8.7 Digoxin 0.9005 A/P Paroxysmal Atiral Fibrillation with RVR LV Systolic Dysfunction Mitral Regurgitation HTN Apparently he was ruled out for sleep apnea at [place] this past summer - rate control with coreg, amiodarone, digoxin - continue anticoagulation - lasix, aldactone - monitor urine output, creatinine - O2 as needed - Should review sleep study data - For possible EP workup per cardiology - Telemetry monitoring Dr Kapadia CCTime 35"
--- NOTE | 2016-02-27 13:00 | PN ---
Progress Note, Physician History of Present Illness: patient seen and examined no complaints HR still uncontrolled - Current Medication List Current Medications: Active Medications Amiodarone HCl (Cordarone -) 200 mg PO DAILY [facility] Last Admin: 02/27/16 09:04 Dose: 200 mg Carvedilol (Coreg -) 37.5 mg PO BID [facility] Last Admin: 02/27/16 09:05 Dose: 37.5 mg Digoxin (Lanoxin -) 0.25 mg PO DAILY [facility] Last Admin: 02/27/16 09:04 Dose: 0.25 mg Spironolactone (Aldactone -) 25 mg PO DAILY [facility] Last Admin: 02/27/16 09:05 Dose: 25 mg Valsartan (Diovan -) 160 mg PO DAILY [facility] Last Admin: 02/27/16 09:04 Dose: 160 mg - Objective Vital Signs: Vital Signs Temperature 97.8 F 02/27/16 06:00 Pulse Rate 119 H 02/27/16 10:00 Respiratory Rate 18 02/27/16 10:00 Blood Pressure 101/84 02/27/16 10:00 O2 Sat by Pulse Oximetry (%) 95 02/27/16 09:22 Constitutional: Yes: Well Nourished, No Distress Eyes: Yes: WNL, Conjunctiva Clear, EOM Intact HENT: Yes: Atraumatic Neck: Yes: Supple Cardiovascular: Yes: Tachycardia, Pulse Irregular Respiratory: Yes: Other (fine crackles bilaterally L>R) Gastrointestinal: Yes: Soft Edema: No Integumentary: Yes: WNL ...Motor Strength: WNL Labs: CBC, BMP 02/27/16 05:00 02/27/16 05:00 INR, PTT INR 1.53 (0.82-1.09) H 02/21/16 06:04 Assessment/Plan 55 year old male, px medical history of AFIB on eliquis transferred to ICU for rate control and cardioversion 1.) AFIB with RVR on eliquis:-HR was not controlled on current medications. s/ p cardioversion attempts x2 unsuccessful. continue amiodarone continue valsartan Cardiology consult appreciated. Needs better rate control. Will need EPS/RFA. Continue cardizem will continue eliquis Will go to [facility] for cardiac cath then [facility] for further intervention may need hydration prior to cath stop lasix LV systolic dysfunction Repeat Echo as outpt continue valsartan Continue Amiodarone continue daily lasix RADHA: avoid nephrotoxic drugs stop lasix Trend Cr FEN: no IVF overloaded on lasix no electrolyte issues on diet PPx: Eliquis no GI PPx needed no deconditioning issues
--- NOTE | 2016-02-27 17:13 | PN ---
Teaching Attending Note Name of Resident: Roxanne Martinez ATTENDING PHYSICIAN STATEMENT I saw and evaluated the patient. I reviewed the resident's note and discussed the case with the resident. I agree with the resident's findings and plan as documented. SUBJECTIVE:currently asymptomatic. states he does not experience CP or palpiations. denies SOB,fever, chills, n/V/C/D OBJECTIVE: Last Vital Signs Temp Pulse Resp BP Pulse Ox 97.3 F L 115 H 18 105/66 95 02/27/16 14:00 02/27/16 14:00 02/27/16 14:00 02/27/16 14:00 02/27/16 09:22 General NAD CV S1 S2 tachycardic, irregular,. no murmur Lungs CTA B/L no wheezing/rales/rhonchi Extremities no pedal edema ASSESSMENT AND PLAN: 55yo M with PMH afib presented to the ER and was admitted for further evaluation of their emergent condition 1. Afib with RVR- with hx of unsuccessful cardioversion twice. was on cardizem ggt which is now stopped. titrate medications to improve rate control. plan is for R&L cardiac cath with future plan for ablation. eliquis on hold for pending procedure. on coreg/digoxin/amio. cardio on board. monitor dig levels 2. RADHA- medication induced? vs dehydration will give gentle hydration as planned for cardiac cath to prevent further renal injury 3. Polycythemia- dehydration. trend 4. Systolic CHF- heart class 3. started on spirolactone. 5. stable for transfer to [facility] for continuous cardiac monitoring The care of this patient involved high complexity decision making to prevent further life threatening deterioration of the patient's condition and/or to evaluate & treat vital organ system(s) failure or risk of failure. critical care time 50 minutes
[2016-02-27] MEDS ORDERED: SODIUM CHLORIDE 1,000 ML IV SCH (17:15)
--- NOTE | 2016-02-28 06:58 | PN ---
Physical Exam: SUBJECTIVE: Patient seen and examined denies CP,back pain, sob, N/V/V/D, fevers, chills. no other complaints. Asymptomatic, afib HR high 90's and 100's, no st changes on monitor OBJECTIVE: Vital Signs Period Temp Pulse Resp BP Sys/Cervantes Pulse Ox Last 24 Hr 97.0 F-98.3 F 79-145 16-18 101-126/64-85 95-95 GENERAL: The patient is awake, alert, and fully oriented, in no acute distress. HEAD: Normal with no signs of trauma. EYES: PERRL, extraocular movements intact, sclera anicteric, conjunctiva clear. No ptosis. ENT: Ears normal, nares patent, oropharynx clear without exudates, moist mucous membranes. NECK: Trachea midline, full range of motion, supple. LUNGS: Breath sounds equal, clear to auscultation bilaterally, no wheezes, no crackles, no accessory muscle use. HEART: tachy irregular irregular S1, S2 without murmur, rub or gallop. ABDOMEN: Soft, nontender, nondistended, normoactive bowel sounds, no guarding, no rebound, no hepatosplenomegaly, no masses. EXTREMITIES: 2+ pulses, warm, well-perfused, no edema. NEUROLOGICAL: Cranial nerves II through XII grossly intact. Normal speech, gait not observed. PSYCH: Normal mood, normal affect. SKIN: Warm, dry, normal turgor, no rashes or lesions noted Active Medications Generic Name Dose Route Start Last Admin Trade Name Freq PRN Reason Stop Dose Admin Amiodarone HCl 200 mg 02/26/16 10:00 02/27/16 09:04 Cordarone - PO 200 mg DAILY JOSEPH Administration Carvedilol 37.5 mg 02/27/16 07:35 02/27/16 22:18 Coreg - PO 37.5 mg BID JOSEPH Administration Digoxin 0.25 mg 02/27/16 10:00 02/27/16 09:04 Lanoxin - PO 0.25 mg DAILY JOSEPH Administration Sodium Chloride 1,000 mls @ 50 mls/hr 02/27/16 17:15 02/27/16 18:29 Normal Saline - IV 02/28/16 13:14 50 mls/hr ASDIR JOSEPH Administration Spironolactone 25 mg 02/26/16 10:00 02/27/16 09:05 Aldactone - PO 25 mg DAILY JOSEPH Administration Valsartan 160 mg 02/26/16 10:00 02/27/16 09:04 Diovan - PO 160 mg DAILY JOSEPH Administration ASSESSMENT/PLAN: 55 year old male, px medical history of AFIB on eliquis, who present with chest pain and palpitations, found to be in asymptomatic AFIB in RVR , being admitted for cardioversion. 1.) AFIB with RVR on eliquis:-HR was not controlled medically s/p D/C cardioversion x2(unsuccessful), currently atrial arrhythmia - now in Afib with RVR HR 100's and up to -cardio will arrange cath at [place], then eventually EPS +/- RFA at [facility]. -Hold Eliquis pending the cardiac cath -Change Toprol XL 50 bid, start Diovan 80 qd and amio 200 bid, with up titration as tolerated, -Plan for RYAN-guided DCCV as rate-control remains suboptimal. -Given digoxin IV today by cardiology will assess response -monitor dig level -will likely need RF ablation; follow up with Cardio 2) LV systolic dysfunction with MR, TR, suspect tachycardia-mediated etiology-( echo shows poor EF likely from tachycardia induced cardiomyopathy) -Reassess LV fxn in future once rate/rhythm control established -will need repeat echo in 3-4 months to asses if EF has improved with medical management -Continue Diovan as tolerated. -Continue Amiodarone 200 mg BID. -Continue Coreg and titrate dosage -Continue Aldactone with caution but D/C Lasix -monitor on telemetry 3)RADHA: improving with hydration will hydrate patient in light of scheduled cath procedure to decrease contrast induced kidney injury. will cont light hydration with caution to prevent volume overload 4)[place] ruled out 5) Polycythemia- possibly secondary to dehydration will monitor work up as outpatient 5.) DVT on prophylaxis, on eliquis FEn IVNSS replete electrolytes as needed regular diet DVT PPx:SCD hold Eliquis no GI PPx needed dispo: cardio will arrange transfer to [facility], and eventually EPS +/- RFA at [facility] as per patient request Visit type - Emergency Visit Emergency Visit: Yes ED Registration Date: 02/20/16 Care time: The patient presented to the Emergency Department on the above date and was hospitalized for further evaluation of their emergent condition. - New Patient This patient is new to me today: No - Critical Care Critical Care patient: No
[2016-02-28 07:28] LABS: BASOPHIL 0.8 % (0-2.0); EOSINOPHIL 3.3 % (0-4.5); MCH 29.3 pg (25.7-33.7); MEAN PLT VOLUME 9.5 fl (7.5-11.1); NEUTROPHILS 62.9 % (42.8-82.8); RDW 14.8 % (11.9-15.9); WHITE BLOOD COUNT 9.1 K/mm3 (4.0-10.0)
[2016-02-28 08:52] LABS: CALCIUM 8.8 mg/dL (8.5-10.1); CREATININE 1.5 mg/dL (0.7-1.3); DIGOXIN LEVEL 0.9651 ng/ml (0.8-2.0)
[2016-02-28] MEDS: CARVEDILOL 25 MG TABLET (FP) PO SCH ×2 (09:03→22:35)
[2016-02-28] MEDS: VALSARTAN 160 MG TABLET (UD) PO SCH (09:04)
[2016-02-28] MEDS: DIGOXIN 0.25 MG TABLET (FP) PO SCH (09:04)
[2016-02-28] MEDS: SPIRONOLACTONE 25 MG TABLET (FP) PO SCH (09:04)
[2016-02-28] MEDS: AMIODARONE HCL 200 MG TABLET (FP) PO SCH (09:04)
--- NOTE | 2016-02-28 09:49 | PN ---
Progress Note, Physician History of Present Illness: Remains in rapid afib 130s-140s despite medication therapy and previous cardioversion attempts. - Current Medication List Current Medications: Active Medications Amiodarone HCl (Cordarone -) 200 mg PO DAILY [facility] Last Admin: 02/28/16 09:04 Dose: 200 mg Carvedilol (Coreg -) 37.5 mg PO BID [facility] Last Admin: 02/28/16 09:03 Dose: 37.5 mg Digoxin (Lanoxin -) 0.25 mg PO DAILY [facility] Last Admin: 02/28/16 09:04 Dose: 0.25 mg Sodium Chloride (Normal Saline -) 1,000 mls @ 50 mls/hr IV ASDIR [facility] Stop: 02/28/16 13:14 Last Admin: 02/27/16 18:29 Dose: 50 mls/hr Spironolactone (Aldactone -) 25 mg PO DAILY [facility] Last Admin: 02/28/16 09:04 Dose: 25 mg Valsartan (Diovan -) 160 mg PO DAILY [facility] Last Admin: 02/28/16 09:04 Dose: 160 mg - Objective Vital Signs: Vital Signs Temperature 97.9 F 02/28/16 07:39 Pulse Rate 116 H 02/28/16 09:04 Respiratory Rate 18 02/28/16 07:39 Blood Pressure 138/73 02/28/16 07:39 O2 Sat by Pulse Oximetry (%) 95 02/27/16 09:22 Constitutional: Yes: No Distress, Calm Neck: Yes: Supple Cardiovascular: Yes: Tachycardia, Pulse Irregular Respiratory: Yes: Regular, CTA Bilaterally Gastrointestinal: Yes: Normal Bowel Sounds, Soft Edema: No Labs: CBC, BMP 02/28/16 05:35 02/28/16 05:35 INR, PTT INR 1.53 (0.82-1.09) H 02/21/16 06:04 - ....Imaging EKG: Report Reviewed (Tele: Rapid afib 130s-140s) Problem List - Problems (1) Rapid atrial fibrillation Code(s): I48.91 - UNSPECIFIED ATRIAL FIBRILLATION (2) Tachycardia induced cardiomyopathy Code(s): R00.0 - TACHYCARDIA, UNSPECIFIED I43 - CARDIOMYOPATHY IN DISEASES CLASSIFIED ELSEWHERE (3) Systolic dysfunction, left ventricle Code(s): I51.9 - HEART DISEASE, UNSPECIFIED (4) Uctcn-ke-wyxpehg kidney injury Code(s): N17.9 - ACUTE KIDNEY FAILURE, UNSPECIFIED N18.9 - CHRONIC KIDNEY DISEASE, UNSPECIFIED Assessment/Plan 02/22/16 RYAN Preliminary result as follows 1. Mild to moderately decreased LV systolic function 2. Moderate MR 3. Mild to moderate TR 4. Mild AR 5. No evidence of mass or thrombus in LA appendage 6. No evidence of intracardiac shunt via color Doppler or agitated saline injection 7. No evidence of atherosclerotic plaque in thoracic aorta or aortic arch 8. No pericardial effusion ASSESSMENT: 1. Mild-moderate systolic LV dysfunction related to cardiomyopathy unclear ischemic vs. idiopathic, to be further evaluated with class I-II NYHA classification LV failure, compensated 2. Persistent atrial fibrillation post failed cardioversion (2 unsuccessful sessions, multiple attempts) [id number] score 1 on NAOC's with periods of rapid ventricular response 3. HTN 4. Acute on chronic renal insufficiency PLAN: 1. Continue Coreg 37.5 and titrate dosage 2. Continue Digoxin 0.25 qd with caution and close monitoring of level 3. Continue Amiodarone 200 qd, add cardizem 30 q6 with uptitration as needed for rate-control 4. Continue Diovan 160 qd and Aldactone 25 qd 5. Resume Eliquis 5 bid 7. [facility] for further evaluation of the above noted LV systolic dysfunction once rhythm/rate-control has been achieved, DCCV trial again after amiodarone load 8. Outpatient evaluation for possible AF/A-flutter RFA as outlined above Above discussed in detail with the patient
[2016-02-28 09:52] LABS: PLATELET COUNT 170 K/MM3 (134-434)
--- NOTE | 2016-02-28 10:49 | PN ---
Teaching Attending Note Name of Resident: Roxanne Martinez ATTENDING PHYSICIAN STATEMENT I saw and evaluated the patient. I reviewed the resident's note and discussed the case with the resident. I agree with the resident's findings and plan as documented. SUBJECTIVE:currently asymptomatic. denies CP, palpitations, N/V/C/D OBJECTIVE: Last Vital Signs Temp Pulse Resp BP Pulse Ox 97.9 F 116 H 18 138/73 96 02/28/16 07:39 02/28/16 09:04 02/28/16 08:00 02/28/16 07:39 02/28/16 08:00 General NAD CV S1 S2 tachycardic, irregular,. no murmur Lungs CTA B/L no wheezing/rales/rhonchi Extremities no pedal edema ASSESSMENT AND PLAN: 55yo M with PMH afib presented to the ER and was admitted for further evaluation of their emergent condition 1. Afib with RVR- with hx of unsuccessful cardioversion twice. continues to be uncontrolled. on monitor noted to go as high as 130's. started on cardizem po by cardiology. plan for another cardioversion tomorrow if rte does not improve. will likely require ablation. plan for cath once rate stablized. eliquis re- started. monitor dig level. on coreg/digoxin/amio. cardio on board. 2. RADHA- medication induced? vs dehydration. mild improvement with hydration. will cont light hydration with caution to prevent volume overload. 3. Polycythemia- dehydration. trend 4. Systolic CHF- heart class 3. started on spirolactone. 5. DVT ppx- on eliquis
[2016-02-28] MEDS: APIXABAN 5 MG TABLET PO SCH ×2 (11:40→22:35)
[2016-02-28] MEDS: dilTIAZem HCL 30 MG TABLET (FP) PO SCH ×2 (11:40→17:12)
[2016-02-28] MEDS ORDERED: SODIUM CHLORIDE 1,000 ML IV SCH (20:00)
[2016-02-29] MEDS: dilTIAZem HCL 30 MG TABLET (FP) PO SCH ×3 (06:44→12:22)
[2016-02-29 07:39] LABS: MCH 29.6 pg (25.7-33.7); MCHC 33.2 g/dl (32.0-35.9); MEAN CELL VOLUME 88.9 fl (80-96); MEAN PLT VOLUME 9.4 fl (7.5-11.1); PLATELET COUNT 178 K/MM3 (134-434); RDW 14.4 % (11.9-15.9); WHITE BLOOD COUNT 8.6 K/mm3 (4.0-10.0)
[2016-02-29 08:14] VITALS: TEMP 98
[2016-02-29 08:21] LABS: CALCIUM 8.6 mg/dL (8.5-10.1)
[2016-02-29 08:24] LABS: CREATININE 1.4 mg/dL (0.7-1.3)
[2016-02-29] MEDS: CARVEDILOL 25 MG TABLET (FP) PO SCH (09:59)
[2016-02-29] MEDS: DIGOXIN 0.25 MG TABLET (FP) PO SCH (09:59)
[2016-02-29] MEDS: VALSARTAN 160 MG TABLET (UD) PO SCH (09:59)
[2016-02-29] MEDS: APIXABAN 5 MG TABLET PO SCH (10:00)
[2016-02-29] MEDS: SPIRONOLACTONE 25 MG TABLET (FP) PO SCH (10:00)
[2016-02-29] MEDS: AMIODARONE HCL 200 MG TABLET (FP) PO SCH (10:00)
--- NOTE | 2016-02-29 11:52 | PN ---
Progress Note, Physician Chief Complaint: Events noted Currently in atrial fibrillation/flutter with rapid ventricular response despite multiple cardioversions and medications Failed multiple cardioversions Discussed with his sister who requests him to be transferred to [facility] under Dr. Efren Fonseca. Transfer is being arranged History of Present Illness: Patient was seen and examined. Awake and alert. Chart was reviewed Denies chest pain or shortness breath Atrial fibrillation/flutter with rapid ventricular response - Current Medication List Current Medications: Active Medications Amiodarone HCl (Cordarone -) 200 mg PO DAILY [facility] Last Admin: 02/29/16 10:00 Dose: 200 mg Apixaban (Eliquis -) 5 mg PO BID [facility] Last Admin: 02/29/16 10:00 Dose: 5 mg Carvedilol (Coreg -) 37.5 mg PO BID [facility] Last Admin: 02/29/16 09:59 Dose: 37.5 mg Digoxin (Lanoxin -) 0.25 mg PO DAILY [facility] Last Admin: 02/29/16 09:59 Dose: 0.25 mg Diltiazem HCl (Cardizem -) 30 mg PO Q6HPO [facility] Last Admin: 02/29/16 06:44 Dose: 30 mg Spironolactone (Aldactone -) 25 mg PO DAILY [facility] Last Admin: 02/29/16 10:00 Dose: 25 mg Valsartan (Diovan -) 160 mg PO DAILY [facility] Last Admin: 02/29/16 09:59 Dose: 160 mg - Objective Vital Signs: Vital Signs Temperature 98 F 02/29/16 08:14 Pulse Rate 119 H 02/29/16 09:59 Respiratory Rate 18 02/29/16 08:14 Blood Pressure 140/56 02/29/16 08:14 O2 Sat by Pulse Oximetry (%) 97 02/29/16 08:00 Neck: Yes: Supple Cardiovascular: Yes: Pulse Irregular, Murmur (Soft SM), S1, S2 Respiratory: Yes: CTA Bilaterally Gastrointestinal: Yes: Normal Bowel Sounds, Soft. No: Tenderness Edema: No Additional Findings/Remarks: - Review of Systems Constitutional: denies: Chills, Fever Cardiovascular: denies: Chest Pain, Palpitations, Shortness of Breath Respiratory: denies: SOB. denies: Cough, Hemoptysis, Orthopnea, PND Gastrointestinal: denies: Abdominal Pain, Constipation, Diarrhea, Melena, Nausea , Rectal Bleeding, Vomiting Genitourinary: denies: Dysuria Musculoskeletal: denies: Joint Pain Neurological: denies: Dizziness, Headache, Seizure, Syncope Labs: CBC, BMP 02/29/16 05:35 02/29/16 05:35 Problem List - Problems (1) Rapid atrial fibrillation Code(s): I48.91 - UNSPECIFIED ATRIAL FIBRILLATION (2) Systolic dysfunction, left ventricle Code(s): I51.9 - HEART DISEASE, UNSPECIFIED (3) Tachycardia induced cardiomyopathy Code(s): R00.0 - TACHYCARDIA, UNSPECIFIED I43 - CARDIOMYOPATHY IN DISEASES CLASSIFIED ELSEWHERE (4) Atrial flutter with rapid ventricular response Code(s): I48.92 - UNSPECIFIED ATRIAL FLUTTER (5) Mitral regurgitation Code(s): I34.0 - NONRHEUMATIC MITRAL (VALVE) INSUFFICIENCY Qualifiers: Cardiac valve disease etiology: nonrheumatic Qualified Code(s): I34.0 - Nonrheumatic mitral (valve) insufficiency Assessment/Plan 1. Atrial fibrillation/flutter with rapid ventricular response 2. LV systolic dysfunction with MR and TR and left atrial dilatation 3. Renal insufficiency PLAN: 1. Currently started on Carvedilol 37.5 mg BID and Digoxin 0.25 mg QD and Cardizem 30 mg Q6 2. Continue Amiodarone - perhaps increase dose 3. Aldactone 4. Continue Diovan 160 mg QD as renal function tolerates 5. In view of failed cardioversion attempt, he will need EPS/RFA +/- cardiac catheterization which has been postponed due to rate control difficulties. Patient will be transferred to [facility] as per discussion with his sister. Arrangement for transfer is being made by family and patient is to be transferred once bed is available Further plans are to follow. Rich Patel MD
[2016-02-29 12:22] VITALS: BP 117/75; PULSE 120
--- NOTE | 2016-02-29 12:25 | PN ---
Teaching Attending Note Name of Resident: Roxanne Martinez ATTENDING PHYSICIAN STATEMENT I saw and evaluated the patient. I reviewed the resident's note and discussed the case with the resident. I agree with the resident's findings and plan as documented. SUBJECTIVE:currently asymptomatic. denies CP, SOB, fever, chills, N/V/C/D OBJECTIVE: Last Vital Signs Temp Pulse Resp BP Pulse Ox 98 F 120 H 20 117/75 97 02/29/16 08:14 02/29/16 12:22 02/29/16 12:22 02/29/16 12:22 02/29/16 08:00 General NAD CV S1 S2 tachycardic, irregular,. no murmur Lungs CTA B/L no wheezing/rales/rhonchi Extremities no pedal edema ASSESSMENT AND PLAN: 55yo M with PMH afib presented to the ER and was admitted for further evaluation of their emergent condition 1. Afib with RVR- with hx of unsuccessful cardioversion twice. rate has improved. family requesting transfer to [facility] with accepting doctor Dr Efren Fonseca. further management for poorly controlled afib per him. awaiting bed availability. 2. RADHA- medication induced? vs dehydration. continues to improve. will d/c IVF 3. Polycythemia- dehydration. trend 4. Systolic CHF- heart class 3. started on spirolactone. 5. DVT ppx- on eliquis 6. transfer to [facility] under Dr Efren Fonseca, awaiting bed availability
== END 2016-02-29 14:42 | disposition short-term general hospital (02) | DRG 309 ==
LOC: JER 16:51 → JERBED 18:13 → J4S 02-21 12:15 → JICU 02-23 19:35 → J4W 02-27 15:15
PROVIDERS: ADMIT Internal Medicine; ATTEND Internal Medicine
PROC: 5A2204Z Restoration of Cardiac Rhythm, Single (ICD-10-PCS; principal; 2016-02-23 16:30)
DX: I48.0 Paroxysmal atrial fibrillation (principal); N17.9 Acute kidney failure, unspecified; I13.0 Hypertensive heart and chronic kidney disease with heart failure and stage 1 through stage 4 chronic kidney disease, or unspecified chronic kidney disease; I50.20 Unspecified systolic (congestive) heart failure; I42.9 Cardiomyopathy, unspecified; I48.92 Unspecified atrial flutter; I34.0 Nonrheumatic mitral (valve) insufficiency; I36.1 Nonrheumatic tricuspid (valve) insufficiency; E86.0 Dehydration; D75.1 Secondary polycythemia; N18.9 Chronic kidney disease, unspecified
CPT/HCPCS: 36415; 71010-TC; 80048; 80053; 80162; 81003; 82550; 82553; 83735; 83880; 84100; 84443; 84484; 85025; 85027; 85610; 85730; 93005; 93010; 93306-TC; 93312; 93325; 99285-25